=== PATIENT | female | born 1970 | race Caucasian/White ===

== ENCOUNTER 2016-08-16 15:13 | Inpatient (IN) | payer OTHER ==
[~2016-08-16 15:13] MED LIST: HEPARIN 50,000 UNIT/10 ML VIAL IV ONE
--- NOTE | 2016-08-16 16:08 | GHP ---
[f rep st] HISTORY AND PHYSICAL DATE OF ADMISSION: 08/16/2016 HISTORY AND PHYSICAL: Patient is a 46-year-old female who is referred to our office by Dr. Joe esqueda r evaluation of a right cold leg. According to the patient and her mother, who is accompanying her arline benton, for the last 3-4 weeks she has had worsening right calf pain, coldness, atrophy of her right le g, worse with standing. She recently had a CT angiogram of right leg, which showed an occlusion of t he right iliac artery external and internal with distal reconstitution. Patient also had a decreased LAKIA of the right leg indicative of severe peripheral vascular disease. She has a complicated medical history, including history of abdominal aortic aneurysm status post endovascular repair in June of 2015. PAST MEDICAL HISTORY: Endstage renal disease, GI bleed, sarcoidosis, hypertension, bilateral superfi cial femoral occlusions, atrial fibrillation not on anticoagulation/patient is rate controlled, chron ic pain, history of abdominal aortic aneurysm status post endovascular repair, perforated jejunal ulc er, history of congestive heart failure with multiple intensive care unit admissions. ALLERGIES: Advil, Tylenol. PAST SURGICAL HISTORY: Jejunal resection complicated by leaky anastomosis which required reoperation , endovascular repair of abdominal aortic aneurysm, AV fistula although incompetent/patient using ne ck catheters, section x3. MEDICATIONS: 1. Metoprolol 25 mg b.i.d. 2. Norvasc 10 mg daily. 3. Oxycodone IR 5 mg q.4 hours. 4. Diltiazem 30 mg daily. 5. Prednisone 10 mg daily. 6. Renvela 800 mg 2 tablets with meals. 7. Ativan 0.5 mg 1-3 tablets daily. 8. Lexapro 20 mg daily. 9. Albuterol. 10. Sensipar 30 mg p.o. 11. Omeprazole 20 mg. 12. Fentanyl patch 25 mcg apply every 3 days. 13. Nitroglycerin patch as needed. SOCIAL HISTORY: The patient is , recently stop smoking. No alcohol use. REVIEW OF SYSTEMS: She has negative 10-point review of systems. PHYSICAL EXAM: GENERAL: Patient is in a wheelchair, accompanied by her mother, on oxygen. HEAD AND NECK: Normocephalic, atraumatic. CHEST: CTA bilaterally. HEART: Regular rhythm and rate. ABDOM EN: Old well-healed scar. EXTREMITIES: Bilateral inguinal scars. No palpable pulse right iliac art lino region. No Doppler pulses of dorsalis pedis or posterior tibialis on the right leg. Patient has Doppler pulses on the left leg, dorsalis pedis and posterior tibialis. IMPRESSION: A 46-year-old female with right iliac artery occlusion. RECOMMENDATION: Discussed case with Internal Medicine who will admit the patient. Discussed case [facility] Interventional Radiology, who will consider attempt at lysis of the right iliac artery. Patient h as been n.p.o. Patient has been seen by Dr. Kendall in the office. If lysis is unsuccessful, patient may need surgery in the next 1-2 days. /[id number]/MODL
[2016-08-16 16:09] LABS: % IMMATURE GRANULYOCYTES 0.4 % (0.0-1.1); ABSOLUTE IMMATURE GRANULOCYTES 0.04 10^3/uL (0.00-0.10); ADD DIFF? NO; ADD MORPH? NO; ADD SCAN? NO; ATYPICAL LYMPHOCYTE FLAG 10 (0-99); FRAGMENT RBC FLAG 0 (0-99); HEMATOCRIT 34.8 % (38.0-47.0); HEMOGLOBIN 10.6 g/dL (12.6-16.3); LEFT SHIFT FLG 0 (0-99); LIPEMIA HEMOLYSIS FLAG 80 (0-99); MEAN CELL HEMOGLOBIN 28.4 pg (27.9-34.1); MEAN CELL HEMOGLOBIN CONCENTR. 30.5 g/dL (32.4-36.7); MEAN CELL VOLUME 93.3 fL (81.5-99.8); PLATELET CLUMPS FLAG 20 (0-99); PLATELET COUNT 182 10^3/uL (150-400); RED BLOOD CELL COUNT 3.73 10^6/uL (4.18-5.33)
[2016-08-16 16:29] LABS: ANION GAP 15 mEq/L (8-16); CALCIUM 9.8 mg/dL (8.5-10.4); CARBON DIOXIDE 24 mEq/l (22-31); CHLORIDE 95 mEq/L (97-110); CREATININE 3.9 mg/dL (0.6-1.0); GLOMERULAR FILTRATION RATE 12; GLUCOSE 91 mg/dL (70-100); POTASSIUM 4.6 mEq/L (3.5-5.2); SODIUM 134 mEq/L (134-144)
[2016-08-16 16:31] LABS: INR 1.1 (0.83-1.16); PROTIME(PATIENT) 14.1 SEC (12.0-15.0)
[2016-08-16] MEDS ORDERED: MIDAZOLAM 2 MG/2 ML VIAL ONE (16:38)
[2016-08-16] MEDS ORDERED: LIDOCAINE 2% 5 ML SDV ONE (16:49)
[2016-08-16] MEDS ORDERED: PROPOFOL 200 MG/20 ML VIAL ONE ×2 (16:50)
[2016-08-16] MEDS ORDERED: oxyCODONE IR 5 MG TAB PO PRN (17:19)
[2016-08-16] MEDS ORDERED: LORazepam 0.5 MG TAB PO PRN (17:21)
[2016-08-16] MEDS ORDERED: fentaNYL 100 MCG/2 ML INJ ONE ×4 (17:22→18:32)
[2016-08-16] MEDS ORDERED: fentaNYL 25 MCG PATCH TD SCH (17:30)
[2016-08-16] MEDS ORDERED: IOPAMIDOL (ISOVUE-370) 150 ML BTL IV ONE (17:34)
[2016-08-16] MEDS ORDERED: HEPARIN 10,000 UNIT/10 ML MDV ONE (17:35)
[2016-08-16] MEDS ORDERED: HYDROmorphONE/DILAUDID 1 MG/ML SYR ONE (20:07)
[2016-08-16] MEDS ORDERED: HYDROmorphONE/DILAUDID 2 MG TAB PO PRN (20:12)
[2016-08-16] MEDS ORDERED: HYDROmorphONE/DILAUDID 4 MG TAB ONE (20:23)
[2016-08-16] MEDS: HYDROmorphONE/DILAUDID 1 MG/ML SYR IVP PRN ×2 (20:37→22:45)
[2016-08-16] MEDS: HYDROmorphONE/DILAUDID 4 MG TAB PO PRN (20:45)
--- NOTE | 2016-08-16 21:03 | IR ---
Catheter Arteriography of the Abdomen, Pelvis, and Both Legs History: Ischemic right leg pain, probably chronic. Previous endovascular stent graft of abdominal ao rta and common iliac arteries, bilaterally. Smoking, hypertension, renal failure, severe peripheral v ascular disease. Consent: Risks and benefits of the procedure were discussed in detail. Informed consent was obtained from the patient and her mother. The accept risks of internal bleeding, stroke, damage to circulatio n of legs, and ALLERGIC reaction. Medications: MAC anesthesia by Dr. Stalin Evans. Technique: The left groin was prepped and draped in sterile fashion. All elements of maximal sterile barrier technique were used, including cap, mask, sterile gown, sterile gloves, large sterile sheath, hand hygiene, and 2% chlorhexidine for cutaneous antisepsis. For ultrasound imaging guidance, the tr ansducer and cable were placed in a sterile cover, and sterile coupling gel was used. Ultrasound eval uation of potential access sites was performed. Confirmation of patency was difficult given the sever john thickened, calcified rosas. Left common femoral artery was entered with a 5-Ethiopian microintroduce r. 0.035 Glidewire was followed by a 7-Ethiopian dilator and a 5-Ethiopian sidearm sheath. A 5-Ethiopian multi -sidehole Omni Flush measuring catheter was advanced retrogradely to the upper abdominal aorta, for f rontal aortogram. Catheter was pulled down into the distal abdominal aorta and frontal arteriogram of the low pelvis and upper thighs was performed. Catheter was reinserted further cephalad for another arteriogram using same position in order to allow improved opacification of collaterals. Digital sub traction arteriography of both knees was obtained. Efforts to cannulate the occluded right common shahzad ac artery antegradely were made with multiple different guidewires, all without success. These effort s were abandoned. The catheter tip was straightened over the Glidewire and removed. Sidearm sheath wa s removed. Hemostasis at the left groin was obtained by manual compression with a Thrombix patch. Findings: Abdominal aorta appears diffusely aneurysmal. A bifurcated aortobiiliac endograft appears t o be of Cook type. The majority of the lumen of the expanded endograft is half to two-thirds filled w ith unopacified smooth defect compatible with chronic thrombus. Right leg: The right iliac limb is completely thrombosed, and the upper margin is very smooth, with n o stump. Collateral flow allows late reconstitution of distal aspect of right external iliac artery, right common femoral artery, and right profunda femoral artery, not well shown. The right superficial femoral artery is occluded. Muscular collaterals of the thigh allow distal reconstitution of the rig ht popliteal artery about 5 cm above the patella. The artery has good size at the level of the knee. Trifurcation is not well demonstrated. Left leg: Very tortuous left common iliac artery and left external iliac artery are patent. A severe stenosis is noted in the left internal iliac artery. The left common femoral artery is mildly aneurys mal. The left profunda femoral artery is patent. The left superficial femoral artery is completely oc cluded throughout its course. Muscular collaterals from the profunda allow reconstitution of the left popliteal artery at the adductor hiatus, and the popliteal artery is a good-looking vessel, with a h igh bifurcation at the level of the knee joint. Impressions: 1. 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 2. Aortobiiliac endograft, containing a large volume of laminated thrombus. 3. Severely tortuous, atherosclerotic, calcified vessels throughout. 4. Occlusions of both superficial femoral arteries. 5. Failure to recanalize right iliac arterial occlusion. I discussed results with Dr. Kendall at 1900 hours. IR call - - - - - - - - - - - - - - - - - - - - - - - - - - - - - (PQRS measures: Current medications were listed in the medical record, including all known prescripti ons, [id number] medications, herbal medications, and nutritional supplements. Tobacco use: The patient is a current smoker. She was advised to quit. Prophylactic antibiotic:Unnecessary. VTE proph ylaxis: Unnecessary.)
[2016-08-16] MEDS ORDERED: ONDANSETRON 4 MG/2 ML VIAL IVP PRN (21:12)
[2016-08-16] MEDS ORDERED: ONDANSETRON DISINTEGRATING 4 MG TAB PO PRN (21:12)
[2016-08-16] MEDS ORDERED: ACETAMINOPHEN 325 MG TAB PO PRN (21:12)
[2016-08-16] MEDS ORDERED: NICOTINE POLACRILEX 2 MG GUM B PRN (21:12)
[2016-08-16] MEDS ORDERED: HEPARIN 10,000 UNIT/10 ML MDV IVP PRN (21:15)
--- NOTE | 2016-08-16 21:20 | PDGENHP ---
History and Physical - Chief Complaint Acute leg pain - History of Present Illness Primary rat poisoner: Dr. Diaz Primary litigator: Dr. Watson Primary general surgeon: Dr. Kendall Primary rat poisoner: Dr. Diaz HPI: 46-year-old female presenting with acute leg pain located in the calf of the right lower extremity with associated pulselessness. Onset of symptoms approximately 1 month ago and duration has been persistent and worsening thereafter. She has had associated parasthesias in the RLE and recent mechanical fall. Pain has been somewhat alleviated by oxycodone 10mg IR at home , and she is on a fentanyl patch q48hrs. Pain is exacerbated by movement of the foot. She was seen in consultation in Dr. Kendall clinic and a CT angiogram from [facility] had demonstrated occlusion of the right iliac artery. Patient was found to have pulse in the right lower extremity but she had intact sensation and movement. She was admitted emergently for ischemic limb and catheter directed lysis. History Information - Allergies/Home Medication List Allergies/Adverse Reactions: No Known Allergies Allergy (Unverified 08/16/16 15:38) Home Medications: Albuterol 08/16/16 [Last Taken Unknown] Diltiazem 30 mg 08/16/16 [Last Taken Unknown] LORAZEPAM 08/16/16 [Last Taken Unknown] LORAZEPAM 0.5 08/16/16 [Last Taken Unknown] Lexapro 20 08/16/16 [Last Taken Unknown] Metoprolol ER-Hctz 25-12.5 mg 08/16/16 [Last Taken Unknown] Nitroglycerin Patch 0.4 08/16/16 [Last Taken Unknown] Norvasc 10 mg (*) 10 mg 08/16/16 [Last Taken Unknown] Omeprazole 20 08/16/16 [Last Taken Unknown] Prednisone 10 mg 08/16/16 [Last Taken Unknown] RENVELA 800 08/16/16 [Last Taken Unknown] SENSI-CARE PROTECTIVE OINTMENT 08/16/16 [Last Taken Unknown] Sensipar 30 08/16/16 [Last Taken Unknown] fentaNYL 25 08/16/16 [Last Taken Unknown] oxyCODONE IR 5 mg 08/16/16 [Last Taken Unknown] I have personally reviewed and updated: family history, medical history, social history, surgical history - Past Medical History atrial fibrillation, CHF (Unclear type), CVA (With left lower extremity paresis) , ESRD (On Sunday hemodialysis) Additional medical history: Peripheral arterial disease. Abdominal aortic aneurysm. Sarcoidosis - Surgical History Additional surgical history: Endovascular repair of AAA. AV fistula. Currently right chest dialysis catheter - Family History Additional family history: Patient reports no family history of peripheral arterial disease - Social History Smoking Status: Current every day smoker Alcohol Use: None Drug Use: None Additional social history: Normally ambulatory Review of Systems ROS: 10pt was reviewed & negative except for what was stated in HPI & below Constitutional: Reports: other (Significant amount of pain) Muscolosketal: Reports: other (Right lower extremity calf pain) Physical Exam Temp Pulse Resp BP Pulse Ox 18 162/84 H 92 08/16/16 19:01 08/16/16 19:01 08/16/16 19:01 Constitutional: chronically ill appearing, uncomfortable, cachectic, No no apparent distress, No not in pain Eyes: PERRL, anicteric sclera, EOMI Ears, Nose, Mouth, Throat: moist mucous membranes, hearing normal, ears appear normal, no oral mucosal ulcers Cardiovascular: systolic murmur (2/6 systolic murmur at the sternum and apex), tachycardia, other (Non palpable pulses in the right dorsalis pedis and right popliteal fossa), No irregularly irregular, No edema Respiratory: inspiratory crackles (Bilaterally to mid posterior segment), No reduced air movement, No expiratory wheeze, No bronchial breath sounds, No respiratory distress Gastrointestinal: normoactive bowel sounds, soft, non-tender abdomen, no palpable masses Skin: other (Duskiness in the right lower extremity, cold to touch, possible pressure injury on the right heel, mild soft tissue edema and tenderness in the right calf) Musculoskeletal: other (Painful dorsiflexion of the right foot) Neurologic: AAOx3, No sensation intact bilaterally (Paresthesias in the right distal lower extremity), No facial droop Psychiatric: not encephalopathic, thought process linear, anxious, agitated Lab Data & Imaging Review 08/16/16 15:56 08/16/16 15:56 WBC 9.86 10^3/uL (3.80-9.50) H 08/16/16 15:56 RBC 3.73 10^6/uL (4.18-5.33) L 08/16/16 15:56 Hgb 10.6 g/dL (12.6-16.3) L 08/16/16 15:56 Hct 34.8 % (38.0-47.0) L 08/16/16 15:56 MCV 93.3 fL (81.5-99.8) 08/16/16 15:56 MCH 28.4 pg (27.9-34.1) 08/16/16 15:56 MCHC 30.5 g/dL (32.4-36.7) L 08/16/16 15:56 RDW 17.0 % (11.5-15.2) H 08/16/16 15:56 Plt Count 182 10^3/uL (150-400) 08/16/16 15:56 MPV 11.0 fL (8.7-11.7) 08/16/16 15:56 Neut % (Auto) 83.8 % (39.3-74.2) H 08/16/16 15:56 Lymph % (Auto) 7.0 % (15.0-45.0) L 08/16/16 15:56 Divide % (Auto) 6.8 % (4.5-13.0) 08/16/16 15:56 Eos % (Auto) 1.5 % (0.6-7.6) 08/16/16 15:56 Baso % (Auto) 0.5 % (0.3-1.7) 08/16/16 15:56 Nucleat RBC Rel Count 0.0 % (0.0-0.2) 08/16/16 15:56 Absolute Neuts (auto) 8.26 10^3/uL (1.70-6.50) H 08/16/16 15:56 Absolute Lymphs (auto) 0.69 10^3/uL (1.00-3.00) L 08/16/16 15:56 Absolute Monos (auto) 0.67 10^3/uL (0.30-0.80) 08/16/16 15:56 Absolute Eos (auto) 0.15 10^3/uL (0.03-0.40) 08/16/16 15:56 Absolute Basos (auto) 0.05 10^3/uL (0.02-0.10) 08/16/16 15:56 Absolute Nucleated RBC 0.00 10^3/uL (0-0.01) 08/16/16 15:56 Immature Gran % 0.4 % (0.0-1.1) 08/16/16 15:56 Immature Gran # 0.04 10^3/uL (0.00-0.10) 08/16/16 15:56 PT 14.1 SEC (12.0-15.0) 08/16/16 15:56 INR 1.10 (0.83-1.16) 08/16/16 15:56 APTT 29.0 SEC (23.0-38.0) 08/16/16 15:56 Sodium 134 mEq/L (134-144) 08/16/16 15:56 Potassium 4.6 mEq/L (3.5-5.2) 08/16/16 15:56 Chloride 95 mEq/L (97-110) L 08/16/16 15:56 Carbon Dioxide 24 mEq/l (22-31) 08/16/16 15:56 Anion Gap 15 mEq/L (8-16) 08/16/16 15:56 BUN 22 mg/dL (7-23) 08/16/16 15:56 Creatinine 3.9 mg/dL (0.6-1.0) H 08/16/16 15:56 Estimated GFR 12 08/16/16 15:56 Glucose 91 mg/dL (70-100) 08/16/16 15:56 Calcium 9.8 mg/dL (8.5-10.4) 08/16/16 15:56 Assessment & Plan Assessment: 46-year-old female presenting with acute ischemic limb in the right lower extremity secondary to right iliac artery occlusion Plan: 1. Ischemic limb. Acute, new problem this provider, further workup indicated. Most likely secondary to occlusion of the right iliac which is on CT angiogram from [facility] -discussed with Dr. Kendall, his reported to me that the interventional Radiology attempt at opening up the right iliac occlusion was unsuccessful and the patient will require angioplasty, scheduled for tomorrow a.m., NPO after midnight -per Dr. Kendall recommendation, we will initiate heparin drip overnight, hold prior to the procedure tomorrow -place patient in intensive care unit for neuro checks, vascular checks -symptomatic pain management with IV and oral Dilaudid, bowel regimen ordered 2. CHF. Chronic, unclear type, we will order outside records from [facility] -continue patient's home medications once reconciled 3. Atrial fibrillation. Unclear type, continue patient's home medications 4. End-stage renal disease. Nephrology has been notified, the patient will be dialyzed on scheduled (MWF) -outside records reviewed including 07/13/2013 [address] fistula attempts by Dr. Kendall 5. Chronic pain with continuous opiate dependency. Will continue patient on her fentanyl patch, p.r.n. IV and oral Dilaudid as outlined above 6. Chronic hypoxic respiratory failure. Patient is chronically on supplemental oxygen at baseline, currently no increases in her requirements, continue to monitor Diet. Renal at present, NPO after midnight Prophylaxis. High risk patient, currently contraindicated in the setting of catheter directed lysis, SCDs contraindicated in the setting of peripheral vascular disease Code. Full, and mother are joint MPOA per patient Disposition. Anticipated discharge uncertain this time, anticipated length stay is greater than 48 hours warranting inpatient admission status for acute ischemic limb requiring surgical intervention and ICU level monitoring.
--- NOTE | 2016-08-16 22:29 | SOAPPROG ---
SHARLA Progress Note Assessment/Plan: Assessment: 46 female with multiple serious medical problems with subacute ischemia rt leg and foot fx as well aortogram shows occluded rt limb of aortobyfem graft with bilat sfa occlusions not amenable to thrombolysis will need fem-fem fem-pop bypass for limb salvage Plan: probable fem-fem when medically clear 08/16/16 22:25 Objective: Vital Signs Temp Pulse Resp BP Pulse Ox 18 162/84 H 92 08/16/16 19:01 08/16/16 19:01 08/16/16 19:01 Laboratory Results 08/16/16 15:56 08/16/16 15:56 PT 14.1 SEC (12.0-15.0) 08/16/16 15:56 INR 1.10 (0.83-1.16) 08/16/16 15:56 ICD10 Worksheet Patient Problems: Problems Problem Status Diagnosed Ischemia of right lower extremity Acute - ICD10 Problem Qualifiers (1) Ischemia of right lower extremity
[2016-08-16 22:35] LABS: APTT 29.2 SEC (23.0-38.0); INR 1.15 (0.83-1.16); PROTIME(PATIENT) 14.6 SEC (12.0-15.0)
[2016-08-16] MEDS ORDERED: DILTIAZEM 30 MG TAB PO PRN (22:36)
[2016-08-16] MEDS ORDERED: ALOE VERA TP PRN (22:36)
[2016-08-16] MEDS ORDERED: TROLAMINE SALICYLATE TP PRN (22:36)
[2016-08-16] MEDS ORDERED: LACTULOSE 20 GM/30 ML UDCUP PO PRN (22:37)
[2016-08-16] MEDS ORDERED: POLYETHYLENE GLYCOL 3350 17 GM PKT PO PRN (22:37)
[2016-08-16] MEDS ORDERED: BISACODYL 10 MG SUPP PR PRN (22:37)
[2016-08-16] MEDS: HEPARIN/DEXTROSE 500 ML IV SCH (22:43)
[2016-08-16] MEDS ORDERED: NON-FORMULARY NEW DRUG (Omeprazole [Omeprazole] 20 MG) PO SCH (22:45)
[2016-08-16] MEDS: fentaNYL 25 MCG PATCH TD SCH (23:03)
[2016-08-16] MEDS ORDERED: amLODIPine BESYLATE 5 MG TAB ONE (23:06)
[2016-08-16] MEDS: METOPROLOL TARTRATE 25 MG TAB PO SCH (23:10)
[2016-08-17] MEDS: HYDROmorphONE/DILAUDID 4 MG TAB PO PRN ×2 (00:55→05:14)
[2016-08-17] MEDS: HYDROmorphONE/DILAUDID 1 MG/ML SYR IVP PRN ×6 (03:53→22:43)
--- NOTE | 2016-08-17 08:23 | CPEKG ---
Heart Rate: 68 RR Interval: 882 P-R Interval: 172 QRSD Interval: 94 QT Interval: 460 QTC Interval: 490 P [place]: 42 QRS [place]: -6 T Wave [place]: 121 EKG Severity - ABNORMAL ECG - EKG Impression: SINUS RHYTHM EKG Impression: PROBABLE LEFT ATRIAL ABNORMALITY EKG Impression: LVH WITH SECONDARY REPOLARIZATION ABNORMALITY EKG Impression: BORDERLINE PROLONGED QT INTERVAL Electronically Signed By: Loly Olivarez 17-Aug-2016 08:40:53
[2016-08-17] MEDS ORDERED: ESCITALOPRAM OXALATE 10 MG TAB PO SCH (09:00)
[2016-08-17] MEDS ORDERED: Herbals/Supplements -Info Only PO SCH (09:00)
[2016-08-17] MEDS ORDERED: NITROGLYCERIN 0.1 MG/HR PATCH TD SCH (09:00)
[2016-08-17] MEDS ORDERED: PANTOPRAZOLE SODIUM 40 MG TAB PO SCH (09:00)
[2016-08-17] MEDS ORDERED: NON-FORMULARY NEW DRUG (Escitalopram Oxalate [Lexapro] 20 MG) PO SCH (09:00)
[2016-08-17] MEDS: NITROGLYCERIN 0.4 MG/HR PATCH TD SCH (09:23)
[2016-08-17] MEDS: METOPROLOL TARTRATE 25 MG TAB PO SCH ×2 (09:23→20:33)
[2016-08-17] MEDS: NICOTINE 21 MG/24 HR PATCH TD SCH ×2 (09:23→09:30)
[2016-08-17] MEDS: ESCITALOPRAM OXALATE 10 MG TAB PO SCH (09:24)
[2016-08-17] MEDS: predniSONE 10 MG TAB PO SCH (09:24)
[2016-08-17] MEDS: SENNOSIDES/DOCUSATE SODIUM TAB PO SCH ×2 (09:30→20:34)
[2016-08-17] MEDS ORDERED: FAMOTIDINE 20 MG/NACL 50 ML IV SCH (11:00)
[2016-08-17] MEDS: LORazepam 0.5 MG TAB PO PRN ×2 (13:04→22:41)
--- NOTE | 2016-08-17 14:27 | GCON ---
[f rep st] CONSULTATION PULMONARY/CRITICAL CARE CONSULTATION DATE OF CONSULTATION: 08/17/2016 REFERRING PHYSICIAN: Girma Kendall MD REASON FOR CONSULTATION: Evaluation and management of anemia and leg pain with an ischemic limb. HISTORY: The patient is a 46-year-old woman with a history of end-stage renal disease who for about 1 month has had worsening right leg pain. She has had some associated paresthesias and also a fall. She has been taking oxycodone and is also on a fentanyl patch to control the pain. She was seen by Dr. Kendall, and a CT angiogram demonstrated occlusion of the right iliac artery. An attempt to open t his with catheters was unsuccessful. She is admitted to the ICU for heparin and a possible bypass. She currently reports that her pain is stable compared to how it has been over the past month or so. She denies any nausea or vomiting. PAST MEDICAL HISTORY: 1. End-stage renal disease, on hemodialysis Sunday, Sunday, and Sunday. 2. History of sarcoidosis. 3. Hypertension. 4. History of atrial fibrillation. 5. Chronic pain. 6. History of abdominal aortic aneurysm, status post endovascular repair. 7. History of congestive heart failure. 8. History of perforated jejunal ulcer. MEDICATIONS: At the time of admission include metoprolol, Norvasc, oxycodone, diltiazem, prednisone, Renvela, Ativan, Lexapro, albuterol, Sensipar, omeprazole, fentanyl patch, and nitroglycerin. ALLERGIES: Advil and Tylenol. SOCIAL HISTORY: The patient is . She just recently stopped smoking. She does not drink alco hol. FAMILY HISTORY: Unremarkable. REVIEW OF SYSTEMS: A 10-point review of systems adds nothing to the History of Present Illness. PHYSICAL EXAMINATION: GENERAL: The patient is somnolent but arousable and answers questions appropr iately. VITAL SIGNS: Blood pressure is 152/66 with a pulse of 56. She is afebrile. Oxygen saturat ions are 96% on 4 L. HEENT: Normocephalic and atraumatic. No icterus. NECK: No JVD. Trachea is midline. CHEST: Clear to auscultation. CARDIAC: Regular rate and rhythm without murmur. ABDOMEN: Soft and nontender. Bowel sounds are present. EXTREMITIES: She has no palpable pulses in the rig ht leg. LABORATORY: White blood count is 9.9, hemoglobin is 10.6. Chemistry group shows a creatinine of 3.9 with a potassium of 4.6. ASSESSMENT: 1. Acute on chronic right lower extremity arterial occlusion. The patient has had pain for about a month and this has been increasing. An attempt was made to open this up endovascularly, but that was unsuccessful. The patient is currently on heparin, and her symptoms are stable. 2. Anemia. The patient's hemoglobin is 10.6. This is likely related to her renal disease. We do n ot have prior hemoglobin levels to compare. 3. End-stage renal disease. The patient is on hemodialysis. 4. Chronic pain. The patient is on oxycodone as well as a fentanyl patch. She currently appears so mewhat sedated, likely related to her narcotics. PLANS: 1. Bypass surgery as per Dr. Kendall. 2. Follow hemoglobin. 3. Continue fentanyl patch and p.r.n. oxycodone for pain. /[id number]/MODL
--- NOTE | 2016-08-17 14:37 | HOSPPROG ---
Hospitalist Progress Note Assessment/Plan: #Right leg critical limb ischemia -not amendable to angioplasty. Dr. Kendall plans to take to OR in next 1-2 days. Cont heparin gtt #Sarcoidosis: pred #Acute leg pain: due to above. Added Dilaudid. Chronic pain at baseline. #Chronic hypoxic resp failure: due to sarcoid. Prednisone #h/o perforated jejunal ulcer" IV H2-matteo #ESRD: HD per renal #Atrial fibrillation: cont Metoprolol #Chronic pain: Fentanyl patch #AAA: s/p endograft #Diet: renal, NPO for surgery #DVT ppx: heparin gtt #Disp: warrants inpatient admission with critical limb ischemia needing surgery and heparin gtt Subjective: pain well managed currently Objective: Vital Signs Temp Pulse Resp BP Pulse Ox 36.7 C 64 16 155/70 H 96 08/17/16 12:00 08/17/16 14:00 08/17/16 14:00 08/17/16 14:00 08/17/16 14:00 Laboratory Results 08/16/16 15:56 08/16/16 15:56 08/16/16 08/17/16 08/18/16 05:59 05:59 05:59 Intake Total 435 Output Total 100 100 Balance 335 -100 PT 14.6 SEC (12.0-15.0) 08/16/16 22:10 INR 1.15 (0.83-1.16) 08/16/16 22:10 - Physical Exam Constitutional: chronically ill appearing Eyes: PERRL Ears, Nose, Mouth, Throat: moist mucous membranes, hearing normal Cardiovascular: regular rate and rhythym, systolic murmur Respiratory: no respiratory distress, no rales or rhonchi Gastrointestinal: normoactive bowel sounds, soft, non-tender abdomen Genitourinary: no bladder fullness Musculoskeletal: full muscle strength, other (right foot dusky-colored, cool. No palpable pulse. No sensation to touch over toes) Neurologic: AAOx3, CN II-XII Intact Psychiatric: interacting appropriately, flat affect ICD10 Worksheet Patient Problems: Problems Problem Status Diagnosed Ischemia of right lower extremity Acute
--- NOTE | 2016-08-17 19:19 | SOAPPROG ---
SOAP Progress Note Assessment/Plan: Assessment: 46yo female with right iliac occlusion Plan: Surgery planned for Sunday, discussed with Dr Kendall. 08/17/16 19:19 Objective: Vital Signs Temp Pulse Resp BP Pulse Ox 36.7 C 63 16 150/72 H 100 08/17/16 16:00 08/17/16 18:00 08/17/16 18:00 08/17/16 18:00 08/17/16 18:00 Laboratory Results 08/16/16 15:56 08/16/16 15:56 08/16/16 08/17/16 08/18/16 05:59 05:59 05:59 Intake Total 435 305 Output Total 100 100 Balance 335 205 PT 14.6 SEC (12.0-15.0) 08/16/16 22:10 INR 1.15 (0.83-1.16) 08/16/16 22:10 ICD10 Worksheet Patient Problems: Problems Problem Status Diagnosed Ischemia of right lower extremity Acute
[2016-08-17] MEDS: FAMOTIDINE 20 MG/NACL 50 ML IV SCH (20:33)
[2016-08-17] MEDS: HEPARIN/DEXTROSE 500 ML IV SCH (20:51)
[2016-08-17] MEDS: PATCH REMOVAL 1 EA PATCH TD SCH (20:53)
[2016-08-18] MEDS: HYDROmorphONE/DILAUDID 1 MG/ML SYR IVP PRN ×5 (04:59→21:06)
[2016-08-18] MEDS: ESCITALOPRAM OXALATE 10 MG TAB PO SCH (08:41)
[2016-08-18] MEDS: FAMOTIDINE 20 MG/NACL 50 ML IV SCH ×2 (08:41→21:06)
[2016-08-18] MEDS: NITROGLYCERIN 0.4 MG/HR PATCH TD SCH (08:41)
[2016-08-18] MEDS: METOPROLOL TARTRATE 25 MG TAB PO SCH ×2 (08:42→21:04)
[2016-08-18] MEDS: predniSONE 10 MG TAB PO SCH (08:42)
--- NOTE | 2016-08-18 10:16 | HOSPPROG ---
Hospitalist Progress Note Assessment/Plan: #Right leg critical limb ischemia -not amendable to angioplasty. Dr. Kendall plans to take to OR in next 1-2 days. Cont heparin gtt -pain improved today #Sarcoidosis: prednisone #Acute leg pain: due to above. Added Dilaudid. Chronic pain at baseline. #Chronic hypoxic resp failure: due to sarcoid. Prednisone #h/o perforated jejunal ulcer" IV H2-matteo #ESRD: morning labs pending. Appreciate renal consultation. Plan for HD today. #Atrial fibrillation: cont Metoprolol #Chronic pain: Fentanyl patch #AAA: s/p endograft #Diet: renal, NPO for surgery #DVT ppx: heparin gtt #Disp: warrants inpatient admission with critical limb ischemia needing surgery and heparin gtt Subjective: less pain in right leg today Objective: Vital Signs Temp Pulse Resp BP Pulse Ox 36.7 C 60 16 163/80 H 99 08/18/16 08:00 08/18/16 08:00 08/18/16 08:00 08/18/16 08:41 08/18/16 08:00 Laboratory Results 08/16/16 15:56 08/16/16 15:56 08/17/16 08/18/16 08/19/16 05:59 05:59 05:59 Intake Total 435 559 Output Total 100 300 Balance 335 259 PT 14.6 SEC (12.0-15.0) 08/16/16 22:10 INR 1.15 (0.83-1.16) 08/16/16 22:10 - Physical Exam Constitutional: other (appears older than stated age) Eyes: PERRL Ears, Nose, Mouth, Throat: moist mucous membranes Cardiovascular: irregularly irregular Respiratory: no respiratory distress, reduced air movement Gastrointestinal: normoactive bowel sounds Genitourinary: no bladder fullness Skin: other (right leg warmer today. ) ICD10 Worksheet Patient Problems: Problems Problem Status Diagnosed Ischemia of right lower extremity Acute
[2016-08-18 10:49] LABS: HEMATOCRIT 30.1 % (38.0-47.0); HEMOGLOBIN 9.2 g/dL (12.6-16.3); MEAN CELL HEMOGLOBIN CONCENTR. 30.6 g/dL (32.4-36.7); MEAN CELL VOLUME 91.8 fL (81.5-99.8); RED BLOOD CELL COUNT 3.28 10^6/uL (4.18-5.33); RED CELL DISTRIBUTION WIDTH 16.7 % (11.5-15.2)
[2016-08-18] MEDS: SENNOSIDES/DOCUSATE SODIUM TAB PO SCH ×2 (10:49→21:05)
[2016-08-18] MEDS: NICOTINE 21 MG/24 HR PATCH TD SCH (10:49)
[2016-08-18] MEDS: HYDROmorphONE/DILAUDID 4 MG TAB PO PRN ×2 (12:26→19:49)
--- NOTE | 2016-08-18 12:31 | SOAPPROG ---
SOAP Progress Note Assessment/Plan: Assessment: 1)ESRD- [facility] MWF -HD today, EDW 61.2 kg 2)Acute R Ischemic leg -on heparin gtt -unsuccessful attempt at angioplasty -for bypass tomorrow am 3)Anemia of CKD -Hb at goal but on low end-dropped a bit over past 48 hours but no reports of bleeding, follow harman since on heparin -will verify outpt Epo dosing -transfuse if Hb < 7 4)MBD of CKD -phos 11- will switch to renal diet and start Ca Acetate binder 1334 mg po tid meals 5)Sarcoid on prednisone 6)A fib 7)history of AAA s/p endograft 8)history of perf jejunal ulcer 08/18/16 13:29 08/18/16 13:31 Subjective: 46 y/o woman with ESRD ([facility]AC[facility] Digna), A fib, sarcoidosis on prednisone admit with ischemic R leg confirmed by CTA. Attempt at angiplasty was unsuccessful. Currently on heparing gtt, pain improved and she thinks foot is warmer. For bypass surgery tomorrow am. Using [employer] [facility] for HD- last run was Sun- had 3.3 kg UF then which she thinks is a lot for her. Thinks EDW is 61.2 kg. Denies any n/v , sob, cp. Objective: Vital Signs Temp Pulse Resp BP Pulse Ox 36.8 C 64 20 165/72 H 100 08/18/16 12:23 08/18/16 12:23 08/18/16 12:23 08/18/16 12:23 08/18/16 12:23 Laboratory Results 08/18/16 10:35 08/17/16 08/18/16 08/19/16 05:59 05:59 05:59 Intake Total 435 559 Output Total 100 300 Balance 335 259 PT 14.6 SEC (12.0-15.0) 08/16/16 22:10 INR 1.15 (0.83-1.16) 08/16/16 22:10 Physical Exam - Physical Exam General Appearance: no apparent distress EENT: other (mmm, no icterus) Neck: supple, other ([facility] TDC c/d/i) Respiratory: lungs clear Cardiac/Chest: regular rate, rhythm, other (no rub) Abdomen: normal bowel sounds, non-tender, soft Skin: warm/dry Extremities: other (no edema, R foot warm (pt states better)) Neuro/Psych: alert, oriented x 3 ICD10 Worksheet Patient Problems: Problems Problem Status Diagnosed Ischemia of right lower extremity Acute
[2016-08-18 12:53] LABS: ANION GAP 15 mEq/L (8-16); CALCIUM 9.2 mg/dL (8.5-10.4); CARBON DIOXIDE 21 mEq/l (22-31); CHLORIDE 100 mEq/L (97-110); CREATININE 7.2 mg/dL (0.6-1.0); GLOMERULAR FILTRATION RATE 6; GLUCOSE 88 mg/dL (70-100); POTASSIUM 4.4 mEq/L (3.5-5.2); SODIUM 136 mEq/L (134-144)
--- NOTE | 2016-08-18 13:14 | PDINTPN ---
Marine Superintendent Progress Note Assessment/Plan: Assessment: RLE ischemia: For bypass 2/. On Heparin. Pain control improved with PO dilaudid. Anemia: H/H down a bit today. ESRD: On Chronic HD. Plan: HD today. Continue dilaudid for pain control. To OR tomorrow. 08/18/16 13:16 Subjective: Pain comes and goes, no change in overall level until got PO dilaudid just a little while ago. Leg is a bit less cool. Poor appetite. Objective: Vital Signs Temp Pulse Resp BP Pulse Ox 36.8 C 64 20 165/72 H 100 08/18/16 12:23 08/18/16 12:23 08/18/16 12:23 08/18/16 12:23 08/18/16 12:23 Laboratory Results 08/18/16 10:35 08/18/16 10:35 08/17/16 08/18/16 08/19/16 05:59 05:59 05:59 Intake Total 435 559 Output Total 100 300 Balance 335 259 PT 14.6 SEC (12.0-15.0) 08/16/16 22:10 INR 1.15 (0.83-1.16) 08/16/16 22:10 Physical Exam - Physical Exam General Appearance: alert, no apparent distress EENT: normal ENT inspection Neck: normal inspection Respiratory: lungs clear, normal breath sounds, No respiratory distress Cardiac/Chest: regular rate, rhythm, No normal peripheral pulses, No edema Abdomen: normal bowel sounds, non-tender, soft Skin: normal color, warm/dry Extremities: other (RLL no palpable pulses. Leg cool but no cold.) Neuro/Psych: alert, normal mood/affect, oriented x 3 ICD10 Worksheet Patient Problems: Problems Problem Status Diagnosed Ischemia of right lower extremity Acute
[2016-08-18] MEDS: LORazepam 0.5 MG TAB PO PRN ×2 (14:24→21:05)
--- NOTE | 2016-08-18 15:05 | SOAPPROG ---
SOAP Progress Note Assessment/Plan: Assessment: 46yo female with right iliac occlusion seen by Dr Kendall in alot of pain, not feeling well overall PE awake alert LLE no palpable pulses, slightly cool to touch when compared to other Plan: Surgery planned for Sunday, discussed with Dr Kendall. stop heparin in AM consent in front of chart ok to give to pt to review prior in order to save time in AM. NPO tonight 08/17/16 19:19 08/18/16 15:03 Objective: Vital Signs Temp Pulse Resp BP Pulse Ox 36.8 C 77 34 H 189/87 H 97 08/18/16 12:23 08/18/16 14:00 08/18/16 14:00 08/18/16 14:00 08/18/16 14:00 Laboratory Results 08/18/16 10:35 08/18/16 10:35 08/17/16 08/18/16 08/19/16 05:59 05:59 05:59 Intake Total 435 559 Output Total 100 300 Balance 335 259 PT 14.6 SEC (12.0-15.0) 08/16/16 22:10 INR 1.15 (0.83-1.16) 08/16/16 22:10 ICD10 Worksheet Patient Problems: Problems Problem Status Diagnosed Ischemia of right lower extremity Acute
[2016-08-18] MEDS: CALCIUM ACETATE 667 MG CAP PO SCH (18:19)
[2016-08-18] MEDS: HEPARIN/DEXTROSE 500 ML IV SCH (21:06)
[2016-08-18] MEDS: fentaNYL 25 MCG PATCH TD SCH (22:36)
[2016-08-18] MEDS: PATCH REMOVAL 1 EA PATCH TD SCH (22:37)
[2016-08-19] MEDS: HYDROmorphONE/DILAUDID 4 MG TAB PO PRN ×3 (00:08→19:34)
[2016-08-19] MEDS: LORazepam 0.5 MG TAB PO PRN ×2 (03:12→19:33)
[2016-08-19 05:44] LABS: ALBUMIN 3.7 g/dL (3.5-5.0); ANION GAP 15 mEq/L (8-16); CALCIUM 9.5 mg/dL (8.5-10.4); CARBON DIOXIDE 20 mEq/l (22-31); CHLORIDE 100 mEq/L (97-110); CREATININE 4.1 mg/dL (0.6-1.0); GLOMERULAR FILTRATION RATE 12; GLUCOSE 92 mg/dL (70-100); POTASSIUM 4.6 mEq/L (3.5-5.2); SODIUM 135 mEq/L (134-144)
[2016-08-19] MEDS: SENNOSIDES/DOCUSATE SODIUM TAB PO SCH ×3 (06:59→22:01)
[2016-08-19] MEDS: CALCIUM ACETATE 667 MG CAP PO SCH ×3 (07:51→17:28)
[2016-08-19] MEDS: ESCITALOPRAM OXALATE 10 MG TAB PO SCH (07:53)
[2016-08-19] MEDS: predniSONE 10 MG TAB PO SCH (07:54)
[2016-08-19] MEDS: METOPROLOL TARTRATE 25 MG TAB PO SCH ×2 (07:55→10:11)
[2016-08-19] MEDS: FAMOTIDINE 20 MG/NACL 50 ML IV SCH (08:00)
[2016-08-19] MEDS ORDERED: ceFAZolin 2 GM/DEXTROSE 100 ML IV ONE ×2 (08:00→12:00)
[2016-08-19] MEDS: HYDROmorphONE/DILAUDID 1 MG/ML SYR IVP PRN ×2 (08:06→19:29)
[2016-08-19] MEDS: NICOTINE 21 MG/24 HR PATCH TD SCH (08:10)
[2016-08-19] MEDS: NITROGLYCERIN 0.4 MG/HR PATCH TD SCH (09:18)
[2016-08-19 09:50] LABS: HEMATOCRIT 30.5 % (38.0-47.0); HEMOGLOBIN 9.6 g/dL (12.6-16.3); MEAN CELL HEMOGLOBIN CONCENTR. 31.5 g/dL (32.4-36.7); MEAN CELL VOLUME 92.1 fL (81.5-99.8); RED BLOOD CELL COUNT 3.31 10^6/uL (4.18-5.33); RED CELL DISTRIBUTION WIDTH 16.7 % (11.5-15.2)
[2016-08-19 10:09] LABS: ANION GAP 12 mEq/L (8-16); CALCIUM 9.6 mg/dL (8.5-10.4); CARBON DIOXIDE 24 mEq/l (22-31); CHLORIDE 99 mEq/L (97-110); CREATININE 4.6 mg/dL (0.6-1.0); GLOMERULAR FILTRATION RATE 10; GLUCOSE 90 mg/dL (70-100); POTASSIUM 4.3 mEq/L (3.5-5.2); SODIUM 135 mEq/L (134-144)
[2016-08-19] MEDS ORDERED: THROMBIN (RECOMBINANT) 20,000 UNIT SPRAY TP ONE (11:02)
[2016-08-19] MEDS ORDERED: PROTAMINE SULFATE 50 MG/5 ML VIAL IVP ONE ×2 (11:02→12:36)
[2016-08-19] MEDS ORDERED: PAPAVERINE HCL 60 MG/2 ML SDV ONE (11:02)
[2016-08-19] MEDS ORDERED: IOTHALAMATE MEG (CONRAY) 50 ML VIAL IV ONE (11:02)
[2016-08-19] MEDS ORDERED: BUPIVACAINE 0.5% 30 ML SDV ONE (11:03)
[2016-08-19] MEDS ORDERED: BACITRACIN 50,000 UNITS/10 ML SYR IRR ONE (11:03)
[2016-08-19] MEDS ORDERED: POLYMYXIN B SULFATE 500,000 UNIT/10 ML SYR IRR ONE (11:03)
--- NOTE | 2016-08-19 11:50 | HOSPPROG ---
Hospitalist Progress Note Assessment/Plan: #Right leg critical limb ischemia -not amendable to angioplasty. Dr. Kendall to OR today. Cont heparin gtt #Sarcoidosis: prednisone #Acute leg pain: due to above. Added Dilaudid. Chronic pain at baseline. #Chronic hypoxic resp failure: due to sarcoid. Prednisone #h/o perforated jejunal ulcer" IV H2-matteo #ESRD: HD yesterday. Appreciate renal consultation. #Atrial fibrillation: cont Metoprolol #Chronic pain: Fentanyl patch #AAA: s/p endograft #Diet: renal, NPO for surgery #DVT ppx: heparin gtt #Disp: warrants inpatient admission with critical limb ischemia needing surgery and heparin gtt Subjective: more pain in leg today. Didn't sleep last night Objective: Vital Signs Temp Pulse Resp BP Pulse Ox 37.0 C 64 16 128/108 H 95 08/19/16 09:59 08/19/16 10:11 08/19/16 09:59 08/19/16 10:11 08/19/16 09:59 Laboratory Results 08/19/16 09:35 08/19/16 09:35 08/18/16 08/19/16 08/20/16 05:59 05:59 05:59 Intake Total 559 971.7 Output Total 300 Balance 259 971.7 PT 14.6 SEC (12.0-15.0) 08/16/16 22:10 INR 1.15 (0.83-1.16) 08/16/16 22:10 - Physical Exam Constitutional: chronically ill appearing Eyes: PERRL Ears, Nose, Mouth, Throat: moist mucous membranes Cardiovascular: regular rate and rhythym Respiratory: no respiratory distress Gastrointestinal: normoactive bowel sounds Genitourinary: no bladder fullness Musculoskeletal: other (right leg warm. Foot dusky. No sensation over toes. Pain lateral foot) Neurologic: AAOx3, CN II-XII Intact Psychiatric: flat affect ICD10 Worksheet Patient Problems: Problems Problem Status Diagnosed Ischemia of right lower extremity Acute
[2016-08-19] MEDS ORDERED: CEFAZOLIN 2 GM/DEXTROSE/100 ML BAG IV ONE (12:06)
[2016-08-19] MEDS ORDERED: LIDOCAINE 2% 5 ML SDV ONE (12:46)
[2016-08-19] MEDS ORDERED: ROCURONIUM 50 MG/5 ML VIAL ONE (12:46)
[2016-08-19] MEDS ORDERED: fentaNYL 100 MCG/2 ML INJ ONE ×2 (12:47→15:56)
[2016-08-19] MEDS ORDERED: PROPOFOL 200 MG/20 ML VIAL ONE (12:47)
[2016-08-19] MEDS ORDERED: ONDANSETRON 4 MG/2 ML VIAL ONE (14:15)
[2016-08-19] MEDS ORDERED: DEXAMETHASONE 4 MG/ML VIAL ONE (14:15)
--- NOTE | 2016-08-19 14:19 | SOAPPROG ---
SOHUNG Progress Note Assessment/Plan: Assessment: 1)ESRD- [facility] Digna MWF -Next HD Sunday -EDW 61.2 kg 2)Acute R Ischemic leg -on heparin gtt -unsuccessful attempt at angioplasty -for bypass today 3)Anemia of CKD -Hb at goal but on low end-stable overnight -will verify outpt Epo dosing -transfuse if Hb < 7 4)MBD of CKD -phos improved but still high at 7- switched to renal diet and started Ca Acetate binder 1334 mg po tid meals 5)Sarcoid on prednisone 6)A fib 7)history of AAA s/p endograft 8)history of perf jejunal ulcer 08/19/16 15:09 Subjective: Pt currently in OR when I came by. No events overnight. Had HD yesterday. Objective: Vital Signs Temp Pulse Resp BP Pulse Ox 37.0 C 64 16 128/108 H 95 08/19/16 09:59 08/19/16 10:11 08/19/16 09:59 08/19/16 10:11 08/19/16 09:59 Laboratory Results 08/19/16 09:35 08/19/16 09:35 08/18/16 08/19/16 08/20/16 05:59 05:59 05:59 Intake Total 559 971.7 Output Total 300 Balance 259 971.7 PT 14.6 SEC (12.0-15.0) 08/16/16 22:10 INR 1.15 (0.83-1.16) 08/16/16 22:10 ICD10 Worksheet Patient Problems: Problems Problem Status Diagnosed Ischemia of right lower extremity Acute
[2016-08-19] MEDS ORDERED: SKIN ADHESIVE (DERMABOND) 1 EACH TP ONE (15:08)
[2016-08-19] MEDS ORDERED: SUGAMMADEX SODIUM 200 MG/2 ML VIAL IVP ONE (16:00)
--- NOTE | 2016-08-19 17:04 | SOAPPROG ---
SOAP Progress Note Assessment/Plan: Assessment: 46 female with multiple serious medical problems with subacute ischemia rt leg and foot fx as well aortogram shows occluded rt limb of aortobyfem graft with bilat sfa occlusions not amenable to thrombolysis will need fem-fem fem-pop bypass for limb salvage Plan: probable fem-fem when medically clear 08/16/16 22:25 08/19/16 17:01 patient still persist with a painful cold right lower leg. We have fully discussed risks and options of surgery. Plan is a left femoral to right profunda femoris bypass. If necessary we can extend to a right popliteal bypass as well Objective: Vital Signs Temp Pulse Resp BP Pulse Ox 36.6 C 62 11 L 144/67 H 97 08/19/16 16:33 08/19/16 16:33 08/19/16 16:33 08/19/16 16:33 08/19/16 16:33 Laboratory Results 08/19/16 09:35 08/19/16 09:35 08/18/16 08/19/16 08/20/16 05:59 05:59 05:59 Intake Total 559 971.7 Output Total 300 Balance 259 971.7 PT 14.6 SEC (12.0-15.0) 08/16/16 22:10 INR 1.15 (0.83-1.16) 08/16/16 22:10 ICD10 Worksheet Patient Problems: Problems Problem Status Diagnosed Ischemia of right lower extremity Acute - ICD10 Problem Qualifiers (1) Ischemia of right lower extremity
--- NOTE | 2016-08-19 17:07 | POSTOPPROG ---
Post Op Note Date of Operation: 08/19/16 Surgeon: Girma Kendall Esthetician: Tiarra Anesthesiologist: Nathan Anesthesia: GET(General Endotracheal) Pre-op Diagnosis: right leg ischemia Post-op Diagnosis: same Indication: right leg pain secondary to occluded right iliofemoral artery Procedure: a left femoral to right profunda femoris bypass Findings: severely calcified vessels with totally occluded right common femoral art Inf/Abcess present in the surg proc area at time of surgery?: No Depth: Deep Incisional (Fascial) EBL: 100-500 Complications: 0
--- NOTE | 2016-08-19 17:29 | DX ---
Right foot, 3 views, at 509 p.m. Clinical History: 46-year-old female for evaluation of a foot fracture. Comparison Study: None currently available. Findings: There is an obliquely-oriented fracture through the longitudinal diaphysis of the fifth met atarsal, with 4 mm of medial displacement of the distal fracture fragment relative to the proximal fr acture fragment. The bones are demineralized. Vascular calcifications suggest underlying angiopathy, perhaps related to diabetes. The tarsometatarsal alignment is anatomic. There is a plantar calcaneal degenerative enthesophyte. The subtalar joint is normal. There is an unfused os trigonum posterior to the talus. There is no ankle joint effusion. There are a couple of well-corticated ossific densities seen near the lateral aspect of the great toe MTP joint. Impression: Displaced, obliquely-oriented fracture through the fifth metatarsal diaphysis.
[2016-08-19] MEDS ORDERED: hydrALAZINE 20 MG/ML VIAL IVP PRN (20:52)
[2016-08-19] MEDS ORDERED: ENALAPRILAT DIHYDRATE 1.25 MG/ML VIAL IVP PRN (20:55)
[2016-08-19] MEDS: PATCH REMOVAL 1 EA PATCH TD SCH (22:01)
[2016-08-19] MEDS: niCARdipine/NACL 200 ML IV SCH (22:02)
[2016-08-19] MEDS ORDERED: HYDROmorphONE/DILAUDID 4 MG TAB PO PRN (22:55)
[2016-08-20] MEDS: HYDROmorphONE/DILAUDID 1 MG/ML SYR IVP PRN ×4 (00:11→13:00)
[2016-08-20 04:40] LABS: ANION GAP 15 mEq/L (8-16); CALCIUM 9.3 mg/dL (8.5-10.4); CARBON DIOXIDE 20 mEq/l (22-31); CHLORIDE 101 mEq/L (97-110); GLOMERULAR FILTRATION RATE 7; GLUCOSE 94 mg/dL (70-100); POTASSIUM 5.5 mEq/L (3.5-5.2); SODIUM 136 mEq/L (134-144)
[2016-08-20 04:42] LABS: HEMATOCRIT 28.5 % (38.0-47.0); HEMOGLOBIN 8.9 g/dL (12.6-16.3); MEAN CELL HEMOGLOBIN CONCENTR. 31.2 g/dL (32.4-36.7); MEAN CELL VOLUME 92.8 fL (81.5-99.8); RED BLOOD CELL COUNT 3.07 10^6/uL (4.18-5.33); RED CELL DISTRIBUTION WIDTH 16.5 % (11.5-15.2)
[2016-08-20] MEDS: hydrALAZINE 20 MG/ML VIAL IVP PRN ×2 (06:27→12:14)
[2016-08-20] MEDS ORDERED: SODIUM POLY SULF 15 GM/60 ML BOTTLE PO ONE (07:21)
--- NOTE | 2016-08-20 08:20 | HOSPPROG ---
Hospitalist Progress Note Assessment/Plan: #Right leg critical limb ischemia -s/p left fem to right profunda-fem bypass 08/19. #Sarcoidosis: prednisone #Acute leg pain: due to above. On oxycodone IR/Fentanyl patch at home. Denies neuropathic symptoms. Resume all home meds. PRN dilaudid #Chronic hypoxic resp failure: due to sarcoid. Prednisone #h/o perforated jejunal ulcer IV H2-matteo #ESRD: HD yesterday. Appreciate renal consultation. #Atrial fibrillation: cont Metoprolol #Chronic pain: restarting home oxycodone #Accelerated HTN: renal to assist with medications #AAA: s/p endograft #Diet: renal, NPO for surgery #DVT ppx: heparin gtt #Disp: warrants inpatient admission with critical limb ischemia, IV opioids Subjective: Pain is worse in her right leg; feels like her chronic pain. No burning or electric sensation Objective: Vital Signs Temp Pulse Resp BP Pulse Ox 36.8 C 65 18 171/70 H 100 08/19/16 19:00 08/20/16 07:00 08/20/16 07:00 08/20/16 06:00 08/20/16 07:00 Laboratory Results 08/20/16 04:05 08/20/16 04:05 08/19/16 08/20/16 08/21/16 05:59 05:59 05:59 Intake Total 971.7 918 Output Total 430 Balance 971.7 488 PT 14.6 SEC (12.0-15.0) 08/16/16 22:10 INR 1.15 (0.83-1.16) 08/16/16 22:10 - Physical Exam Constitutional: no apparent distress, chronically ill appearing Eyes: PERRL Ears, Nose, Mouth, Throat: moist mucous membranes, hearing normal Cardiovascular: regular rate and rhythym, no murmur, rub, or gallop Respiratory: no respiratory distress, no rales or rhonchi Gastrointestinal: normoactive bowel sounds, soft, non-tender abdomen Genitourinary: no bladder fullness Skin: warm Musculoskeletal: other (Bilateral femoral incision sites dressed, C/D/I. right nail making machine tender along lateral aspect) Neurologic: AAOx3 Psychiatric: interacting appropriately ICD10 Worksheet Patient Problems: Problems Problem Status Diagnosed Ischemia of right lower extremity Acute
[2016-08-20] MEDS: CALCIUM ACETATE 667 MG CAP PO SCH ×3 (08:25→18:26)
[2016-08-20] MEDS: ESCITALOPRAM OXALATE 10 MG TAB PO SCH (08:26)
[2016-08-20] MEDS: SENNOSIDES/DOCUSATE SODIUM TAB PO SCH ×3 (08:27→22:42)
[2016-08-20] MEDS: predniSONE 10 MG TAB PO SCH (08:27)
[2016-08-20] MEDS: METOPROLOL TARTRATE 25 MG TAB PO SCH ×2 (08:27→20:47)
[2016-08-20] MEDS: NICOTINE 21 MG/24 HR PATCH TD SCH ×2 (08:28→08:32)
[2016-08-20] MEDS: FAMOTIDINE 20 MG/NACL 50 ML IV SCH (08:28)
[2016-08-20] MEDS: NITROGLYCERIN 0.4 MG/HR PATCH TD SCH (08:28)
[2016-08-20] MEDS: oxyCODONE IR 5 MG TAB PO PRN ×4 (10:15→22:45)
--- NOTE | 2016-08-20 11:04 | SOAPPROG ---
SOAP Progress Note Assessment/Plan: Assessment: 1)ESRD- [facility] MWF -Next HD Sunday -EDW 61.2 kg 2) R Ischemic leg -unsuccessful attempt at angioplasty- but now s/p fem bypass 08/19 (Dr. Kendall) 3)Anemia of CKD -Hb at goal but on low end-slow drift down since admit -will verify outpt Epo dosing in am -transfuse if Hb < 7 4)MBD of CKD -phos still high- switched to renal diet and increased Ca Acetate binder 2001 mg po tid meals 5)Sarcoid on prednisone 6)A fib- currently sinus 7)history of AAA s/p endograft 8)history of perf jejunal ulcer 9)HTN- I added scheduled po hydralazine (on norvasc), off nicardipine gtt 10)mild hyperkalemia- given kayexalate this am with BM, repeat this afternoon. I discussed with tactical/mobile watch officer diet. I discussed with plateman and RN 08/20/16 12:20 08/20/16 12:21 Subjective: She underwent fem bypass on R last night. Off nicardipine gtt overnight. BP in 170s currently. Reports pain in L leg, gets spasms chronically. R leg warm. K was 5.5 and got kayexalate, has had BM. Objective: Vital Signs Temp Pulse Resp BP Pulse Ox 36.5 C 72 22 H 170/63 H 95 08/20/16 09:00 08/20/16 10:00 08/20/16 10:00 08/20/16 10:00 08/20/16 10:00 Laboratory Results 08/20/16 04:05 08/20/16 04:05 08/19/16 08/20/16 08/21/16 05:59 05:59 05:59 Intake Total 971.7 918 Output Total 430 Balance 971.7 488 PT 14.6 SEC (12.0-15.0) 08/16/16 22:10 INR 1.15 (0.83-1.16) 08/16/16 22:10 Physical Exam - Physical Exam General Appearance: no apparent distress EENT: other (mmm) Neck: supple Respiratory: lungs clear Cardiac/Chest: regular rate, rhythm Abdomen: normal bowel sounds, non-tender, soft Skin: warm/dry Extremities: other (ext both warm (R much improved), no edema) Neuro/Psych: alert, oriented x 3 ICD10 Worksheet Patient Problems: Problems Problem Status Diagnosed Ischemia of right lower extremity Acute
--- NOTE | 2016-08-20 11:17 | PDINTPN ---
Textile Broker Progress Note Assessment/Plan: Assessment: RLE ischemia: For bypass 2/. On Heparin. Pain control improved with PO dilaudid. Anemia: H/H down a bit today. ESRD: On Chronic HD. HTN: On amlodipine and metoprolol as an outpatient. Here in the hospital on amlodipine, diltiazem, nicardipine, and hydralazine PRN. Plan: HD tomorrow. Resume outpatient pain medications. Nephrology to address antihypertensive medications, goal to get off IV medications and transfer to floor. 08/20/16 11:17 Subjective: Leg pain markedly improved. C/O pain throughout her body that she attributes to inactivity/bedridden status. Poor appetite. Objective: Vital Signs Temp Pulse Resp BP Pulse Ox 36.5 C 72 22 H 170/63 H 95 08/20/16 09:00 08/20/16 10:00 08/20/16 10:00 08/20/16 10:00 08/20/16 10:00 Laboratory Results 08/20/16 04:05 08/20/16 04:05 08/19/16 08/20/16 08/21/16 05:59 05:59 05:59 Intake Total 971.7 918 Output Total 430 Balance 971.7 488 PT 14.6 SEC (12.0-15.0) 08/16/16 22:10 INR 1.15 (0.83-1.16) 08/16/16 22:10 Physical Exam - Physical Exam General Appearance: alert EENT: normal ENT inspection Neck: normal inspection Respiratory: lungs clear, normal breath sounds Cardiac/Chest: regular rate, rhythm, No edema Abdomen: normal bowel sounds, non-tender Skin: normal color, warm/dry Extremities: normal inspection Neuro/Psych: alert, normal mood/affect, oriented x 3 ICD10 Worksheet Patient Problems: Problems Problem Status Diagnosed Ischemia of right lower extremity Acute
[2016-08-20] MEDS: LORazepam 0.5 MG TAB PO PRN ×2 (12:06→19:18)
[2016-08-20 12:39] LABS: POTASSIUM 4.8 mEq/L (3.5-5.2)
[2016-08-20] MEDS: CYCLOBENZAPRINE 10 MG TAB PO SCH ×2 (14:56→22:41)
[2016-08-20] MEDS ORDERED: CYCLOBENZAPRINE 10 MG TAB PO SCH (16:00)
[2016-08-20] MEDS ORDERED: hydrALAZINE 25 MG TAB PO SCH (16:00)
[2016-08-20] MEDS ORDERED: hydrALAZINE 25 MG TAB PO ONE (16:30)
--- NOTE | 2016-08-20 19:26 | SOAPPROG ---
ONIAP Progress Note Assessment/Plan: Assessment: 46 female with multiple serious medical problems with subacute ischemia rt leg and foot fx as well aortogram shows occluded rt limb of aortobyfem graft with bilat sfa occlusions not amenable to thrombolysis will need fem-fem fem-pop bypass for limb salvage Plan: probable fem-fem when medically clear 08/16/16 22:25 08/19/16 17:01 patient still persist with a painful cold right lower leg. We have fully discussed risks and options of surgery. Plan is a left femoral to right profunda femoris bypass. If necessary we can extend to a right popliteal bypass as well 08/20/16 19:23 FOOT WARM/ DOPPLER PULSES +/ WOUNDS OK/ SOME PAIN ISSUES BUT LEG PAIN RESOLVED Objective: Vital Signs Temp Pulse Resp BP Pulse Ox 36.5 C 78 19 179/71 H 95 08/20/16 14:00 08/20/16 18:00 08/20/16 18:00 08/20/16 18:00 08/20/16 18:00 Laboratory Results 08/20/16 04:05 08/20/16 12:15 08/19/16 08/20/16 08/21/16 05:59 05:59 05:59 Intake Total 971.7 918 240 Output Total 430 100 Balance 971.7 488 140 PT 14.6 SEC (12.0-15.0) 08/16/16 22:10 INR 1.15 (0.83-1.16) 08/16/16 22:10 ICD10 Worksheet Patient Problems: Problems Problem Status Diagnosed Ischemia of right lower extremity Acute - ICD10 Problem Qualifiers (1) Ischemia of right lower extremity
[2016-08-20] MEDS: fentaNYL 25 MCG PATCH TD SCH (22:45)
[2016-08-20] MEDS: niCARdipine/NACL 200 ML IV SCH (23:20)
[2016-08-21] MEDS: HYDROmorphONE/DILAUDID 1 MG/ML SYR IVP PRN ×4 (00:07→14:18)
[2016-08-21] MEDS: LORazepam 0.5 MG TAB PO PRN ×2 (01:43→10:07)
[2016-08-21] MEDS: PATCH REMOVAL 1 EA PATCH TD SCH ×2 (01:45→22:50)
[2016-08-21] MEDS: oxyCODONE IR 5 MG TAB PO PRN ×6 (02:29→22:54)
[2016-08-21 05:15] LABS: HEMATOCRIT 28.4 % (38.0-47.0); HEMOGLOBIN 8.9 g/dL (12.6-16.3); MEAN CELL HEMOGLOBIN 28.8 pg (27.9-34.1); MEAN CELL HEMOGLOBIN CONCENTR. 31.3 g/dL (32.4-36.7); MEAN CELL VOLUME 91.9 fL (81.5-99.8); RED BLOOD CELL COUNT 3.09 10^6/uL (4.18-5.33); RED CELL DISTRIBUTION WIDTH 16.7 % (11.5-15.2)
[2016-08-21 05:39] LABS: ALBUMIN 3.4 g/dL (3.5-5.0); ANION GAP 18 mEq/L (8-16); CALCIUM 9.1 mg/dL (8.5-10.4); CARBON DIOXIDE 18 mEq/l (22-31); CHLORIDE 102 mEq/L (97-110); GLOMERULAR FILTRATION RATE 6; GLUCOSE 81 mg/dL (70-100); POTASSIUM 4.6 mEq/L (3.5-5.2); SODIUM 138 mEq/L (134-144)
[2016-08-21 05:52] LABS: CREATININE 7.7 mg/dL (0.6-1.0)
[2016-08-21] MEDS: ESCITALOPRAM OXALATE 10 MG TAB PO SCH (07:26)
[2016-08-21] MEDS: CYCLOBENZAPRINE 10 MG TAB PO SCH ×3 (07:26→22:47)
[2016-08-21] MEDS: SENNOSIDES/DOCUSATE SODIUM TAB PO SCH ×2 (07:27→19:54)
[2016-08-21] MEDS: predniSONE 10 MG TAB PO SCH (07:29)
[2016-08-21] MEDS: CALCIUM ACETATE 667 MG CAP PO SCH ×4 (09:23→19:54)
[2016-08-21] MEDS: METOPROLOL TARTRATE 25 MG TAB PO SCH ×2 (09:23→19:55)
[2016-08-21] MEDS: NICOTINE 21 MG/24 HR PATCH TD SCH (09:24)
--- NOTE | 2016-08-21 09:35 | SOAPPROG ---
SOAP Progress Note Assessment/Plan: Assessment: 46yo female s/p Left Fem to right femoral profunda bypass POD 2, HTN, Chronic renal failure. My left leg hurts more than right now, "right feels fine" PE seen in dialysis with Dr Kendall Awake alert EXT no edema B/L, both feet warm to touch, normal color. Plan ART studies of lower EXT to document flow 08/17/16 19:19 08/18/16 15:03 08/21/16 09:31 Objective: Vital Signs Temp Pulse Resp BP Pulse Ox 36.8 C 68 17 191/70 H 100 08/21/16 04:00 08/21/16 06:00 08/21/16 06:00 08/21/16 08:20 08/21/16 06:00 Laboratory Results 08/21/16 04:53 08/21/16 04:53 08/20/16 08/21/16 08/22/16 05:59 05:59 05:59 Intake Total 918 533 Output Total 430 100 Balance 488 433 PT 14.6 SEC (12.0-15.0) 08/16/16 22:10 INR 1.15 (0.83-1.16) 08/16/16 22:10 ICD10 Worksheet Patient Problems: Problems Problem Status Diagnosed Ischemia of right lower extremity Acute
[2016-08-21] MEDS: NITROGLYCERIN 0.4 MG/HR PATCH TD SCH ×2 (10:05→12:17)
[2016-08-21] MEDS: niCARdipine/NACL 200 ML IV SCH ×3 (11:19→22:47)
[2016-08-21] MEDS: FAMOTIDINE 20 MG/NACL 50 ML IV SCH (11:23)
--- NOTE | 2016-08-21 12:14 | SOAPPROG ---
SHARLA Progress Note Assessment/Plan: Assessment/Plan: ESRD: on HD MWF. - Seen on HD today. - Next HD planned for Sunday. HTN: uncontrolled, seems that it may chronically be uncontrolled per pt. - Will increase hydralazine to 100mg po TID. - Will continue amlodipine and metoprolol. - Hopefully can wean off nicardipine ggt again today. ALEXIS: Phos continues to climb, noted that pt has refused her calcium acetate. Please encourage her to take this. Hyperkalemia: improved with kayexalate given yesterday, modulating further today with HD. Subjective: No acute events overnight. Pt seen on HD today, has been having a lot of pain and cramping in both legs this morning. Her BP was higher on HD and her nicardipine ggt was resumed, had not had her metoprolol or her amlodipine yet. Objective: Vital Signs Temp Pulse Resp BP Pulse Ox 36.8 C 73 13 165/67 H 96 08/21/16 04:00 08/21/16 12:00 08/21/16 12:00 08/21/16 12:00 08/21/16 12:00 Laboratory Results 08/21/16 04:53 08/21/16 04:53 08/20/16 08/21/16 08/22/16 05:59 05:59 05:59 Intake Total 918 533 Output Total 430 100 Balance 488 433 PT 14.6 SEC (12.0-15.0) 08/16/16 22:10 INR 1.15 (0.83-1.16) 08/16/16 22:10 General: awake, mild distress Eyes; EOMI, PERRL OP: Clear CV: RRR Resp: CTA bilat, nonlabored respirations Abd; Soft, NT/ND Ext: No edema BLE Pulses: +2 bilateral dorsalis pedis pulses Neuro: CN II-XII grossly intact, no asterixis Access: R IJ tunneled catheter ICD10 Worksheet Patient Problems: Problems Problem Status Diagnosed Ischemia of right lower extremity Acute
--- NOTE | 2016-08-21 13:22 | GOP ---
[f rep st] OPERATIVE REPORT DATE OF OPERATION: 08/19/2016 SURGEON: Girma Kendall MD TRANSPORTATION ENGINEERING TECHNICIAN: Dr. Mayen ANESTHESIOLOGIST: Dr. Evans PREOPERATIVE DIAGNOSIS: Right leg ischemia. POSTOPERATIVE DIAGNOSIS: Right leg ischemia. PROCEDURE PERFORMED: Left femoral to right profunda femoris bypass. FINDINGS: The patient was found in the extremely horrible vessels with complete calcifications making it extremely difficult to perform any anastomosis. The left common femoral and profunda femoris takeoff were completely calcified extending all way back up under the inguinal ligament into the iliac artery with no real soft point almost anywhere in the vessel. On the right groin, the common femoral and the takeoff of the profunda femoris were all totally calcified and occluded with no lumen or inflow whatsoever extending well up into the iliac artery underneath the inguinal ligament. The profunda femoris distal to the takeoff was a reasonably soft vessel, and we did manage to restore capillary filling and Doppler pulses to the right foot. DESCRIPTION OF PROCEDURE: Patient taken to the operating room, where she received a satisfactory general endotracheal anesthesia by Dr. Evans. She was prepped and draped in the usual sterile fashion in the supine position. Bilateral vertical groin incisions were made through previous old incisions. Dissection extended down to the calcified common femoral arteries. On the right groin, no attempt was made to even control the common femoral artery, and dissection extended down along with the profunda femoris past its origin and down to where it began to have multiple branches, and a point was selected for the targeted are for the bypass graft. In the left groin, the common femoral and profunda femoris, superficial femoral artery, and multiple branches were all dissected free and controlled with vessel loops. The profunda femoris was rock hard, calcified, and had to be dissected quite distally in order to have vascular control. One small soft area in the common femoral artery was able to be encircled with a vessel loop for proximal occlusion, but no where else in the artery other than this 1 cm area could the artery be controlled with crossclamps or vessel loops. After this was all dissected out, an 8- 6 tapered Impra graft was selected. This was passed in a subcutaneous suprapubic passageway between the 2 groins. Proximal anastomosis was done first. The control appeared to be partly adequate and an arteriotomy was made in the dilated portion of the common femoral artery. It was quite calcified, but it had a wide open channel and excellent inflow and outflow through the profunda. The tapered end of the graft was then sutured in place with a running 3-0 Prolene suture as that was the only needle I could get that would smith the calcification. The flow was first established through the graft, and there was a significant amount of bleeding through needle holes and areas that had to be reinforced with several mattress sutures until adequate hemostasis was achieved. Flow was then reestablished through the profunda femoris and superficial femoral arteries while the bypass graft was crossclamped. A second anastomosis was made to the profunda femoris in an end-to-side manner using a running 5-0 Prolene suture creating a 1.5 cm anastomosis to the profunda femoris. Vessels were flushed prior to completion of the suture line, then flow was established, and it appeared to have good runoff flow and good pulse in the profunda femoris artery, eventually with pinking up of the foot. There were no definite palpable pulses, but there were Dopplerable pulses in the foot, and the bleeding through the suture holes on the left groin was much reduced once the graft was opened and flow was diverted somewhat away from the area. Hemostasis was carefully obtained. The heparin was reversed with protamine. The groin incisions were then closed in layers using 2-0 Vicryl for the fascial layer, 3-0 Vicryl for the subcu, and skin shar for the skin. The superficial layers were infiltrated with 0.5% Marcaine. The wound had been sprayed with some topical thrombin as well, and she was taken to the recovery room in satisfactory condition. There were no complications. Blood loss was 250 cc. Copy requested to: Dr. Matty Boswell #: [id number]
--- NOTE | 2016-08-21 16:46 | HOSPPROG ---
Hospitalist Progress Note Assessment/Plan: 46 yo F with hx of sarcoidosis and ESRD presenting with critical limb ischemia # right critical limb ischemia: now s/p fem fem bypass with now doppler-able pulses. F/u arterial studies to re evaluate flow. Gen surg following. # left leg pain: unclear if this represents new ischemia, arterial studies pending, foot warm # acute on chronic pain with continuous narcotic use and dependency: making pain control somewhat more challenging, not particularly somnolent on current medications, will continue to uptitrate as needed # hypertensive urgency: has been challenging to get patient off cardene gtt, added nitro patch she was on at home for bp control, working on improved pain mgmt which likely will help as well # sarcoidosis: continue prednisone # esrd: continue HD, renal following, renal diet # hx of AAA s/p endograft, h/o perforated jejunal ulcer # anemia of ckd: continue to trend # paroxysmal a fib: on personal review of ecg and telemetry has been in NSR, continue metoprolol and diltiazem # dispo: IP status, remains critically ill requiring IV anti hypertensives Patient new to my care. Old records reviewed and summarized as above. Care plan reviewed with Dr. Low on multidisciplinary team rounds. Further hx obtained from family present at bedside. Subjective: no signficiant overnight events, right leg feels better but now left leg and foot hurts more, pain remains intermittently severe Objective: Vital Signs Temp Pulse Resp BP Pulse Ox 36.8 C 74 17 151/61 H 100 08/21/16 04:00 08/21/16 16:00 08/21/16 16:00 08/21/16 16:00 08/21/16 16:00 Laboratory Results 08/21/16 04:53 08/21/16 04:53 08/20/16 08/21/16 08/22/16 05:59 05:59 05:59 Intake Total 918 533 Output Total 430 100 Balance 488 433 PT 14.6 SEC (12.0-15.0) 08/16/16 22:10 INR 1.15 (0.83-1.16) 08/16/16 22:10 chronically ill appearing somnolent anicteric op clear rrr no mrg cta b to ant exam soft nt nd ble with dec bulk, dopplerable pulses, b feet warm warm dry somnolent but arousable - Time Spent With Patient Time Spent with Patient: greater than 35 minutes Time Spent with Patient: Greater than 35 minutes spent on this patients care, greater than 50% of time spent counseling, educating, and coordinating care regarding the above mentioned plan. ICD10 Worksheet Patient Problems: Problems Problem Status Diagnosed Ischemia of right lower extremity Acute
--- NOTE | 2016-08-21 18:37 | PDINTPN ---
Director Hospice Operations Progress Note Assessment/Plan: Assessment: RLE ischemia: Status post bypass. Good color, right lower extremity warm. No evidence of ongoing ischemia. Left lower extremity warm as well. Arterial studies from earlier today pending. On heparin drip. Surgery following Chronic pain, narcotic dependency. Pain control seems adequate at this time. Anemia: Hematocrit stable at 28. Will follow. No evidence of active bleeding. . ESRD: On Chronic HD, status post HD today. HTN: On amlodipine and metoprolol as an outpatient. Requiring a narcotic heard the Pean drip currently. Blood pressures remained somewhat labile. Plan: Continue anticoagulation, follow lower extremity perfusion closely. Await new vascular studies. Continue nicardipine drip for elevated blood pressures. Increase oral anti hypertensives as possible. Continue pain control. All the above was discussed with nursing, hospitalist, surgery, and the ICU multi disciplinary team. 30 minutes of clinic time spent directly with the patient.. Subjective: Doing okay. Denies significant pain. She feels the current pain control medications are appropriate. Denies shortness of breath. Objective: Vital Signs Temp Pulse Resp BP Pulse Ox 36.8 C 77 26 H 167/62 H 94 08/21/16 04:00 08/21/16 18:00 08/21/16 18:00 08/21/16 18:00 08/21/16 18:00 Laboratory Results 08/21/16 04:53 08/21/16 04:53 08/20/16 08/21/16 08/22/16 05:59 05:59 05:59 Intake Total 918 533 298 Output Total 430 100 1 Balance 488 433 297 PT 14.6 SEC (12.0-15.0) 08/16/16 22:10 INR 1.15 (0.83-1.16) 08/16/16 22:10 Physical Exam - Physical Exam General Appearance: other (Lethargic, arousable, responsive) EENT: other (Nasal cannula 4 L) Neck: normal inspection (No JVD) Respiratory: lungs clear, decreased breath sounds (At bases), No rales, No rhonchi Cardiac/Chest: regular rate, rhythm Abdomen: non-tender, soft, No normal bowel sounds (Decreased bowel sounds, few present) Skin: warm/dry, pallor Lymphatic: no adenopathy Extremities: other (Warm, decreased pulses bilaterally. No significant pain with palpation.), No pedal edema Neuro/Psych: no motor/sensory deficits (Non focal), No cognition abnormalities ICD10 Worksheet Patient Problems: Problems Problem Status Diagnosed Ischemia of right lower extremity Acute
[2016-08-21] MEDS ORDERED: HEPARIN 50,000 UNIT/10 ML VIAL ONE (18:50)
[2016-08-22] MEDS: HYDROmorphONE/DILAUDID 1 MG/ML SYR IVP PRN ×2 (01:15→06:01)
[2016-08-22] MEDS: LORazepam 0.5 MG TAB PO PRN (01:15)
[2016-08-22] MEDS: oxyCODONE IR 5 MG TAB PO PRN ×3 (03:52→20:38)
[2016-08-22 04:27] LABS: HEMATOCRIT 29.6 % (38.0-47.0); HEMOGLOBIN 8.9 g/dL (12.6-16.3); MEAN CELL HEMOGLOBIN 27.6 pg (27.9-34.1); MEAN CELL HEMOGLOBIN CONCENTR. 30.1 g/dL (32.4-36.7); MEAN CELL VOLUME 91.6 fL (81.5-99.8); RED BLOOD CELL COUNT 3.23 10^6/uL (4.18-5.33); RED CELL DISTRIBUTION WIDTH 16.7 % (11.5-15.2)
[2016-08-22 04:31] LABS: ALBUMIN 3.4 g/dL (3.5-5.0); ANION GAP 14 mEq/L (8-16); CALCIUM 9.5 mg/dL (8.5-10.4); CARBON DIOXIDE 24 mEq/l (22-31); CHLORIDE 105 mEq/L (97-110); CREATININE 4.9 mg/dL (0.6-1.0); GLOMERULAR FILTRATION RATE 9; GLUCOSE 104 mg/dL (70-100); POTASSIUM 4.8 mEq/L (3.5-5.2); SODIUM 143 mEq/L (134-144)
[2016-08-22] MEDS: predniSONE 10 MG TAB PO SCH (08:18)
[2016-08-22] MEDS: CALCIUM ACETATE 667 MG CAP PO SCH ×3 (08:18→17:25)
[2016-08-22] MEDS: CYCLOBENZAPRINE 10 MG TAB PO SCH ×3 (08:18→20:37)
[2016-08-22] MEDS: SENNOSIDES/DOCUSATE SODIUM TAB PO SCH ×2 (08:19→20:33)
[2016-08-22] MEDS: METOPROLOL TARTRATE 25 MG TAB PO SCH (08:19)
[2016-08-22] MEDS: ESCITALOPRAM OXALATE 10 MG TAB PO SCH (08:19)
[2016-08-22] MEDS: NICOTINE 21 MG/24 HR PATCH TD SCH ×2 (08:20→08:23)
[2016-08-22] MEDS: NITROGLYCERIN 0.4 MG/HR PATCH TD SCH (08:27)
--- NOTE | 2016-08-22 10:23 | SOAPPROG ---
SOHUNG Progress Note Assessment/Plan: Assessment/Plan: ESRD: on HD MWF. - Next HD tomorrow. HTN: uncontrolled, seems that it may chronically be uncontrolled per pt. - Have already increased hydralazine to 100mg po TID, will continue. - Will continue amlodipine. - Will increase metoprolol to 50mg po BID. - Will try to wean off nicardipine ggt again today. ALEXIS: Phos improved now that she is taking her calcium acetate, will continue. Subjective: No acute events overnight. Pt states that her L leg still has cramping. She has no other complaints this am. Objective: Vital Signs Temp Pulse Resp BP Pulse Ox 36.9 C 74 12 158/82 H 94 08/22/16 08:00 08/22/16 10:00 08/22/16 10:00 08/22/16 10:00 08/22/16 10:00 Laboratory Results 08/22/16 03:49 08/22/16 03:49 08/21/16 08/22/16 08/23/16 05:59 05:59 05:59 Intake Total 533 1240 Output Total 100 1 Balance 433 1239 PT 14.6 SEC (12.0-15.0) 08/16/16 22:10 INR 1.15 (0.83-1.16) 08/16/16 22:10 General: alert and oriented, no acute distress Eyes: EOMI, PERRL OP: Clear CV: RRR Resp: nonlabored respirations on NC Abd: Soft, NT Ext: no edema, +2/4 dorsalis pedis pulses bilaterally Access: R IJ TC ICD10 Worksheet Patient Problems: Problems Problem Status Diagnosed Ischemia of right lower extremity Acute
--- NOTE | 2016-08-22 13:44 | HOSPPROG ---
Hospitalist Progress Note Assessment/Plan: 46 yo F with hx of sarcoidosis and ESRD presenting with critical limb ischemia # right critical limb ischemia: now s/p fem fem bypass with now doppler-able pulses. Gen surg following, suspect they plan to have arterial flow studies performed. # left leg pain: unclear if this represents new ischemia, arterial studies pending, foot warm # acute on chronic pain with continuous narcotic use and dependency: making pain control somewhat more challenging, not particularly somnolent on current medications, will continue to uptitrate as needed # hypertensive urgency: has been challenging to get patient off cardene gtt, added nitro patch she was on at home for bp control, working on improved pain mgmt which likely will help as well # sarcoidosis: continue prednisone # esrd: continue HD, renal following, renal diet # hx of AAA s/p endograft, h/o perforated jejunal ulcer # anemia of ckd: continue to trend, has been essentially stable # paroxysmal a fib: on personal review of ecg and telemetry has been in NSR, continue metoprolol and diltiazem # dispo: IP status, remains critically ill requiring IV anti hypertensives Care plan reviewed with Dr. Low on multidisciplinary team rounds. Further hx obtained from family present at bedside. Subjective: no significant overnight events, patient remains intermittently very somnolent versus complaining about pain Objective: Vital Signs Temp Pulse Resp BP Pulse Ox 36.9 C 72 15 142/58 H 97 08/22/16 08:00 08/22/16 12:00 08/22/16 12:00 08/22/16 12:00 08/22/16 12:00 Laboratory Results 08/22/16 03:49 08/22/16 03:49 08/21/16 08/22/16 08/23/16 05:59 05:59 05:59 Intake Total 533 1240 Output Total 100 1 Balance 433 1239 PT 14.6 SEC (12.0-15.0) 08/16/16 22:10 INR 1.15 (0.83-1.16) 08/16/16 22:10 chronically ill appearing somnolent anicteric op clear rrr no mrg cta b to ant exam soft nt nd ble with dec bulk, dopplerable pulses, b feet warm warm dry somnolent but arousable ICD10 Worksheet Patient Problems: Problems Problem Status Diagnosed Ischemia of right lower extremity Acute
--- NOTE | 2016-08-22 15:14 | SOAPPROG ---
SOAP Progress Note Assessment/Plan: Assessment/Plan: 46 Y F c multiple medical issues including ESRD on HD, AAA s/p stent repair, afib, CHF, perforated jejunal ulcer, sarcoidosis, severe PVD admitted c right leg pain secondary to occluded right iliofemoral artery now s/ p left femoral to right profunda femoris arterial bypass. Also, R foot fx. R leg ok, now c/o L leg cramping and pain. Suspect an element of steal syndrome affecting her L leg. Arterial studies yesterday were limited and unrevealing. She does have a very very faint L DP pulse. On fentanyl patch, oxy IR. Will try procardia XL as a vasodilator to combat vasospasm. If does not work will discontinue this. Might consider gabapentin in this case. Ok to lift bedrest status. Patient saw an orthopedist as outpatient, does not recall name, re: her R foot fracture. She thinks she is supposed to be non- weight bearing on R foot but missed her last appt due to this admission. May need to get ortho to weigh in on this. Wounds are clean, intact, and may be open to air if they stay dry. Ok to shower. 08/22/16 15:15 Subjective: c/o left leg spasm. was sleeping when i came in. once awake she has a difficult time keeping L leg still. Objective: Vital Signs Temp Pulse Resp BP Pulse Ox 36.9 C 68 14 150/51 H 96 08/22/16 08:00 08/22/16 14:00 08/22/16 14:00 08/22/16 14:00 08/22/16 14:00 Laboratory Results 08/22/16 03:49 08/22/16 03:49 08/21/16 08/22/16 08/23/16 05:59 05:59 05:59 Intake Total 533 1240 Output Total 100 1 Balance 433 1239 PT 14.6 SEC (12.0-15.0) 08/16/16 22:10 INR 1.15 (0.83-1.16) 08/16/16 22:10 alert, nad, chronically ill appearing no wob abd soft groin inc cdi, no erythema R lateral foot with improved color--less blue, more pink. both feet are warm. faintly audible dp pulses, R>L, both quite poor ICD10 Worksheet Patient Problems: Problems Problem Status Diagnosed Ischemia of right lower extremity Acute
[2016-08-22] MEDS: NIFEdipine ER 30 MG TAB PO SCH (15:47)
--- NOTE | 2016-08-22 20:03 | PDINTPN ---
Transition Rn Progress Note Assessment/Plan: Assessment: RLE ischemia: Status post bypass. Good color, right lower extremity warm. No evidence of ongoing ischemia. Left lower extremity warm as well. Arterial studies yesterday not revealing. On heparin drip. She has some pain related to her left calf and some muscle tenderness there. Possible muscle strain. The left leg looks well perfused. Doubt a steal syndrome. Surgery following Chronic pain, narcotic dependency. Pain control seems adequate at this time. Anemia: Hematocrit stable at 29. Will follow. No evidence of active bleeding. . ESRD: On Chronic HD, status post HD today. History of sarcoidosis, on chronic steroids. No evidence of acute flare HTN: On amlodipine and metoprolol as an outpatient. Metoprolol increased. Calcium channel matteo ordered. Off nicardipine. Blood pressures seem more stable. Are line removed.. Plan: Continue anticoagulation, follow lower extremity perfusion. Continue blood pressure medications. Continue pain control. Can switch to step-down status. Continue hemodialysis on her usual schedule. All the above was discussed with nursing, hospitalist, surgery, and the ICU multi disciplinary team. 25 minutes of clinic time spent directly with the patient.. Subjective: Doing okay, better. Some left calf pain. Right leg without pain. Objective: Vital Signs Temp Pulse Resp BP Pulse Ox 36.9 C 72 16 157/69 H 96 08/22/16 16:00 08/22/16 18:00 08/22/16 18:00 08/22/16 18:00 08/22/16 18:00 Laboratory Results 08/22/16 03:49 08/22/16 03:49 08/21/16 08/22/16 08/23/16 05:59 05:59 05:59 Intake Total 533 1240 558 Output Total 100 1 75 Balance 433 1239 483 PT 14.6 SEC (12.0-15.0) 08/16/16 22:10 INR 1.15 (0.83-1.16) 08/16/16 22:10 Laboratory Tests 08/22/16 03:49 Calcium 9.5 Phosphorus 6.2 H D Albumin 3.4 L Physical Exam - Physical Exam General Appearance: alert, no apparent distress, thin EENT: other (Nasal cannula at 3 L) Neck: normal inspection Respiratory: lungs clear, decreased breath sounds (At bases) Cardiac/Chest: regular rate, rhythm, systolic murmur, No gallop Abdomen: non-tender, soft, No normal bowel sounds (Decreased, present) Skin: warm/dry, pallor Extremities: other (Both extremities warm, well-perfused, no obvious ischemia. Left calf is somewhat firm regarding the musculature and mildly tender to palpation. No cords are appreciated.), No pedal edema Neuro/Psych: no motor/sensory deficits, No cognition abnormalities ICD10 Worksheet Patient Problems: Problems Problem Status Diagnosed Ischemia of right lower extremity Acute
[2016-08-22] MEDS: METOPROLOL TARTRATE 50 MG TAB PO SCH (20:33)
[2016-08-22] MEDS: PATCH REMOVAL 1 EA PATCH TD SCH (20:34)
[2016-08-23] MEDS: fentaNYL 25 MCG PATCH TD SCH (00:26)
[2016-08-23] MEDS: oxyCODONE IR 5 MG TAB PO PRN ×5 (00:34→15:58)
[2016-08-23 03:45] VITALS: TEMP 97.8
[2016-08-23 04:51] LABS: ALBUMIN 3.5 g/dL (3.5-5.0); ANION GAP 15 mEq/L (8-16); CALCIUM 10.2 mg/dL (8.5-10.4); CARBON DIOXIDE 21 mEq/l (22-31); CHLORIDE 103 mEq/L (97-110); CREATININE 6.5 mg/dL (0.6-1.0); GLOMERULAR FILTRATION RATE 7; GLUCOSE 104 mg/dL (70-100); POTASSIUM 5.6 mEq/L (3.5-5.2); SODIUM 139 mEq/L (134-144)
[2016-08-23] MEDS: CALCIUM ACETATE 667 MG CAP PO SCH ×2 (08:01→12:23)
[2016-08-23] MEDS: CYCLOBENZAPRINE 10 MG TAB PO SCH ×2 (08:02→15:57)
[2016-08-23] MEDS: predniSONE 10 MG TAB PO SCH (08:02)
[2016-08-23] MEDS: NIFEdipine ER 30 MG TAB PO SCH (08:02)
[2016-08-23] MEDS: ESCITALOPRAM OXALATE 10 MG TAB PO SCH (08:02)
[2016-08-23] MEDS: NITROGLYCERIN 0.4 MG/HR PATCH TD SCH (08:04)
[2016-08-23] MEDS: METOPROLOL TARTRATE 50 MG TAB PO SCH (08:04)
[2016-08-23] MEDS: NICOTINE 21 MG/24 HR PATCH TD SCH (08:19)
[2016-08-23] MEDS: SENNOSIDES/DOCUSATE SODIUM TAB PO SCH (08:19)
--- NOTE | 2016-08-23 10:08 | SOAPPROG ---
SOAP Progress Note Assessment/Plan: Assessment: 46yo female s/p Left Fem to right femoral profunda bypass, HTN, Chronic renal failure. Feel much better today, want to go home to see son, son was just released from senior living Pain/spasm, leg twitching greatly improved per pt, left leg "feels fine" PE no visible leg spasm/twitching or restlessness, watched for 2-3 minutes from door awake alert, in chair chest CTA B/L EXT B/L stapled incisions clean/dry, no surrounding erythema, B/L feet warm to touch Plan ok to d/c from surgical perspective with F/U in our office in 7-[address] f/u info in d/c summary recommend staying on nifedipine 30 once daily for now, will evaluate in office 08/17/16 19:19 08/18/16 15:03 08/21/16 09:31 08/23/16 10:05 08/23/16 10:09 08/23/16 10:11 Objective: Vital Signs Temp Pulse Resp BP Pulse Ox 36.6 C 63 18 153/64 H 95 08/23/16 08:00 08/23/16 08:00 08/23/16 08:00 08/23/16 08:00 08/23/16 08:00 Laboratory Results 08/22/16 03:49 08/23/16 03:50 08/22/16 08/23/16 08/24/16 05:59 05:59 05:59 Intake Total 1240 808 Output Total 1 225 Balance 1239 583 PT 14.6 SEC (12.0-15.0) 08/16/16 22:10 INR 1.15 (0.83-1.16) 08/16/16 22:10 ICD10 Worksheet Patient Problems: Problems Problem Status Diagnosed Ischemia of right lower extremity Acute
--- NOTE | 2016-08-23 11:05 | SOAPPROG ---
SOAP Progress Note Assessment/Plan: Assessment: 46yo female s/p Left Fem to right femoral profunda bypass, HTN, Chronic renal failure. Feel much better today, want to go home to see son, son was just released from correction Pain/spasm, leg twitching greatly improved per pt, left leg "feels fine" PE no visible leg spasm/twitching or restlessness, watched for 2-3 minutes from door awake alert, in chair chest CTA B/L EXT B/L stapled incisions clean/dry, no surrounding erythema, B/L feet warm to touch Plan ok to d/c from surgical perspective with F/U in our office in 7-[address] f/u info in d/c summary recommend staying on nifedipine 30 once daily for now, will evaluate in office discussed with Dr Kendall, Pt should go home on following: Plavix 75mg once daily aspirin 81mg once daily 08/17/16 19:19 08/18/16 15:03 08/21/16 09:31 08/23/16 10:05 08/23/16 10:09 08/23/16 10:11 08/23/16 11:04 Objective: Vital Signs Temp Pulse Resp BP Pulse Ox 36.6 C 63 18 153/64 H 95 08/23/16 08:00 08/23/16 08:00 08/23/16 08:00 08/23/16 08:00 08/23/16 08:00 Laboratory Results 08/22/16 03:49 08/23/16 03:50 08/22/16 08/23/16 08/24/16 05:59 05:59 05:59 Intake Total 1240 808 Output Total 1 225 Balance 1239 583 PT 14.6 SEC (12.0-15.0) 08/16/16 22:10 INR 1.15 (0.83-1.16) 08/16/16 22:10 ICD10 Worksheet Patient Problems: Problems Problem Status Diagnosed Ischemia of right lower extremity Acute
--- NOTE | 2016-08-23 11:16 | SOAPPROG ---
SHARLA Progress Note Assessment/Plan: Assessment: 1. ESRD. HD today per MWF schedule. 2. PAD. s/p R fem-pop bypass. Appears to have good perfusion, recovering well from surgery. 3. Anemia. Continue procrit as outpatient. 4. Hyperkalemia. Mild. Dialyze today. 5. Dispo. OK from renal view to d/c after dialysis today. Plan: 08/23/16 11:15 08/23/16 11:16 Subjective: No complaints today. Wants to go home. Objective: Vital Signs Temp Pulse Resp BP Pulse Ox 36.6 C 63 18 153/64 H 95 08/23/16 08:00 08/23/16 08:00 08/23/16 08:00 08/23/16 08:00 08/23/16 08:00 Laboratory Results 08/22/16 03:49 08/23/16 03:50 08/22/16 08/23/16 08/24/16 05:59 05:59 05:59 Intake Total 1240 808 Output Total 1 225 Balance 1239 583 PT 14.6 SEC (12.0-15.0) 08/16/16 22:10 INR 1.15 (0.83-1.16) 08/16/16 22:10 Comfortable, sitting in chair RRR, no m/g/r Coarse bibasilar crackles Abdom soft, nt No edema Feet both warm, well perfused ICD10 Worksheet Patient Problems: Problems Problem Status Diagnosed Ischemia of right lower extremity Acute
[2016-08-23] MEDS ORDERED: ASPIRIN 81 MG CHEWABLE TAB PO SCH (11:30)
[2016-08-23] MEDS ORDERED: CLOPIDOGREL BISULFATE 75 MG TAB PO SCH (11:30)
[2016-08-23 11:46] VITALS: BP 139/62; PULSE 64; RESP 14; O2SAT 98
--- NOTE | 2016-08-23 11:57 | PDDCSUM ---
Discharge Summary Discharge Summary: Dates of service 08/16-08/22/16 Discharge dx: # critical limb ischemia # esrd # sarcoidosis # acute on chronic pain on continuous narcotic use and dependency # uncontrolled htn # anemia of ckd # hx of AA, h/o a fib, recent foot fracture Consultations: renal, pulmonary, gen surg Procedures performed: fem-fem bypass, HD Hospital course by problem: # right critical limb ischemia: now s/p fem fem bypass with now doppler-able pulses. continue nifedipine, plavix, asa. f/u with gen surg in 1 week. # acute on chronic pain with continuous narcotic use and dependency: pain control improved today and patient more alert # hypertensive urgency: improved control on current meds including nifedipine, metoprolol, amlodipine, hydralazine, diltiazem and nitro patch. Renal will continue to manage at op f/u. # sarcoidosis: continue prednisone # esrd: continue HD, renal following, renal diet # hx of AAA s/p endograft, h/o perforated jejunal ulcer # anemia of ckd: continue to trend, has been essentially stable # paroxysmal a fib: on personal review of ecg and telemetry has been in NSR, continue metoprolol/dilt Dispo: dc home, patient eager to see her son she has not seen in years Meds: see EHR F/u with renal/gen surg/pcp > 35 min spent in dc of patient, more than half in coordination of care
[2016-08-23] MEDS ORDERED: HEPARIN 50,000 UNIT/10 ML VIAL ONE (12:00)
== END 2016-08-23 17:22 | disposition home or self-care (01) | DRG 252 ==
LOC: FIMAGING 15:13 → F2N 16:22
PROVIDERS: ADMIT Internal Medicine; ATTEND Surgery
PROC: 5A1D00Z (ICD-10-PCS; 2016-08-18)
PROC: B41D1ZZ Fluoroscopy of Aorta and Bilateral Lower Extremity Arteries using Low Osmolar Contrast (ICD-10-PCS; principal; 2016-08-19 10:30)
PROC: 041L0JH Bypass Left Femoral Artery to Right Femoral Artery with Synthetic Substitute, Open Approach (ICD-10-PCS; principal; 2016-08-19 10:30)
DX: I73.9 Peripheral vascular disease, unspecified (principal); I69.354 Hemiplegia and hemiparesis following cerebral infarction affecting left non-dominant side; N18.6 End stage renal disease; I13.2 Hypertensive heart and chronic kidney disease with heart failure and with stage 5 chronic kidney disease, or end stage renal disease; G89.29 Other chronic pain; F11.20 Opioid dependence, uncomplicated; J96.11 Chronic respiratory failure with hypoxia; I48.0 Paroxysmal atrial fibrillation; I50.9 Heart failure, unspecified; D86.9 Sarcoidosis, unspecified; E87.5 Hyperkalemia; D63.1 Anemia in chronic kidney disease; Z99.2 Dependence on renal dialysis; Z79.52 Long term (current) use of systemic steroids
CPT/HCPCS: 85520-90; 97161-GP; 97166-GO; C1757; C1768; C1769; C1892; C1894; G8978-GP-CI; G8979-GP-CI; G8980-GP-CI; G8987-GO-CI; G8988-GO-CI; G8989-GO-CI; J0360; J0690; J1100; J1170; J1644; J2250; J2405; J2440; J2704; J2720; J3010; Q9961; Q9967

== ENCOUNTER 2016-09-18 10:43 | Observation (INO) | payer OTHER ==
[2016-09-18 12:37] LABS: ANION GAP 13 mEq/L (8-16); CALCIUM 9.3 mg/dL (8.5-10.4); CARBON DIOXIDE 26 mEq/l (22-31); CHLORIDE 99 mEq/L (97-110); CREATININE 4.4 mg/dL (0.6-1.0); GLOMERULAR FILTRATION RATE 11; GLUCOSE 93 mg/dL (70-100); POTASSIUM 4.6 mEq/L (3.5-5.2); SODIUM 138 mEq/L (134-144)
[2016-09-18] MEDS ORDERED: BUPIVACAINE 0.5% 30 ML SDV ONE ×2 (12:52→15:11)
[2016-09-18] MEDS ORDERED: ceFAZolin 2 GM/DEXTROSE 100 ML IV ONE (13:00)
[2016-09-18] MEDS ORDERED: fentaNYL 100 MCG/2 ML INJ ONE ×4 (14:12→16:37)
[2016-09-18] MEDS ORDERED: fentaNYL 100 MCG/2 ML INJ IVP PRN (14:14)
[2016-09-18] MEDS ORDERED: LIDOCAINE 2% 100 MG/5 ML SYR IVP ONE (15:16)
[2016-09-18] MEDS ORDERED: PROPOFOL 200 MG/20 ML VIAL ONE (15:16)
[2016-09-18] MEDS ORDERED: MIDAZOLAM 2 MG/2 ML VIAL ONE (15:24)
[2016-09-18] MEDS ORDERED: SKIN ADHESIVE (DERMABOND) 1 EACH TP ONE ×2 (17:06→17:18)
[2016-09-18] MEDS ORDERED: OXYCODONE/APAP 5/325 TAB PO PRN (17:31)
[2016-09-18] MEDS ORDERED: ONDANSETRON 4 MG/2 ML VIAL IVP PRN (17:31)
[2016-09-18] MEDS ORDERED: HYDROCODONE/APAP 5/325 TAB PO PRN (17:31)
[2016-09-18] MEDS ORDERED: ACETAMINOPHEN 325 MG TAB PO PRN (17:31)
--- NOTE | 2016-09-18 17:35 | POSTOPPROG ---
Post Op Note Date of Operation: 09/18/16 Surgeon: Girma [facility] Coordinator: Delano Kumar Anesthesiologist: Dr Carlisle Anesthesia: Epidural Pre-op Diagnosis: right groin lymphocele Post-op Diagnosis: same Indication: draining wound Procedure: incision/exploration and drainage right groin would Findings: draining wound Inf/Abcess present in the surg proc area at time of surgery?: No Depth: Deep Incisional (Fascial) EBL: Minimal
[2016-09-18] MEDS: D5W 1/2 NS W/ 20 KCl/L 1,000 ML IV SCH (19:23)
[2016-09-18] MEDS: HYDROmorphONE/DILAUDID 1 MG/ML SYR IVP PRN ×2 (19:23→22:03)
[2016-09-18 19:37] VITALS: RESP 16
[2016-09-18] MEDS ORDERED: ENALAPRILAT DIHYDRATE 1.25 MG/ML VIAL IV PRN (21:20)
[2016-09-18] MEDS: ceFAZolin 2 GM/DEXTROSE 100 ML IV SCH (23:26)
[2016-09-18] MEDS: METOPROLOL TARTRATE 25 MG TAB PO SCH (23:27)
[2016-09-19] MEDS: HYDROmorphONE/DILAUDID 1 MG/ML SYR IVP PRN ×3 (01:27→09:09)
[2016-09-19] MEDS: D5W 1/2 NS W/ 20 KCl/L 1,000 ML IV SCH (06:36)
[2016-09-19 08:39] VITALS: TEMP 98.1
[2016-09-19] MEDS ORDERED: NIFEdipine ER 30 MG TAB PO SCH (09:00)
--- NOTE | 2016-09-19 09:10 | SOAPPROG ---
SOAP Progress Note Assessment/Plan: Assessment/Plan: 46 Y F s/p R groin exploration for lymphocele, POD#1. Multiple comorbidities including ESRD on HD, sarcoid, PVD. High blood pressure. Give regular home meds this morning. Wounds. Dressing dry, moderate swelling. Pressure dressing reapplied. Dispo: ok to go home today after PO hypertension meds. 09/19/16 09:07 Subjective: Groin is sore. has been oob. eager to go home. Objective: Vital Signs Temp Pulse Resp BP Pulse Ox 36.7 C 66 16 182/93 H 98 09/19/16 08:28 09/19/16 08:28 09/19/16 08:28 09/19/16 08:28 09/19/16 08:28 Laboratory Results 09/18/16 11:50 09/18/16 09/19/16 09/20/16 05:59 05:59 05:59 Intake Total 1675 Output Total 285 Balance 1390 alert, nad, chronically illl appearing no wob, ctab rrr abd soft L groin nontender hemtoma swelling, R groin moderate swelling, dry. feet warm, wounds healing ICD10 Worksheet Patient Problems: Problems Problem Status Onset Ischemia of right lower extremity Acute
[2016-09-19] MEDS: ceFAZolin 2 GM/DEXTROSE 100 ML IV SCH (09:12)
[2016-09-19] MEDS: METOPROLOL TARTRATE 25 MG TAB PO SCH (09:13)
[2016-09-19] MEDS ORDERED: oxyCODONE IR 5 MG TAB PO ONE (10:00)
[2016-09-19 11:37] VITALS: BP 155/93; PULSE 68; O2SAT 97
== END 2016-09-19 12:45 | disposition home or self-care (01) ==
LOC: F3E 10:43
PROVIDERS: ADMIT Surgery; ATTEND Surgery
PROC: 0W9F3ZZ Drainage of Abdominal Wall, Percutaneous Approach (ICD-10-PCS; principal; 2016-09-18 12:30)
DX: I89.8 Other specified noninfective disorders of lymphatic vessels and lymph nodes (principal)
CPT/HCPCS: 49082; J0690; J1170; J2001; J2250; J2704; J3010